=== PATIENT | female | born 1940 | race Caucasian/White ===

== ENCOUNTER → 2017-10-25 09:59 | Outpatient (CLI) | payer MEDICARE, OTHER, SELFPAY ==
--- NOTE | 2017-10-25 | DI.MG.S_ITS ---
BILATERAL DIGITAL SCREENING MAMMOGRAM 3D/2D WITH CAD: 10/25/2017 CLINICAL: Routine screening. Comparison is made to exams dated: 06/03/2016 mammogram, 02/17/2015 mammogram, and 11/19/2013 mammogram - [facility]. The tissue of both breasts is predominantly fatty. Current study was also evaluated with a Computer Aided Detection (CAD) system. No significant masses, calcifications, or other findings are seen in either breast. There has been no significant interval change. IMPRESSION: NEGATIVE There is no mammographic evidence of malignancy. A 1 year screening mammogram is recommended. This exam was interpreted at Station ID: [id number]. NOTE: For mammograms, a report in lay terms will be sent to the patient. Approximately 15% of breast malignancies will not be visualized mammographically. In the management of a palpable breast mass, a negative mammogram must not discourage biopsy of a clinically suspicious lesion. Electronically Signed By: Laith hughes/kenyatta:10/25/2017 11:16:10 letter sent: Normal Exam ACR BI-RADS Category 1: Negative [id number]
== END ==
PROVIDERS: Family Provider Internal Medicine; PCP Internal Medicine; Visit Provider Internal Medicine
DX: Z12.31 Encounter for screening mammogram for malignant neoplasm of breast (principal)
CPT/HCPCS: 77063; 77067

== ENCOUNTER → 2017-12-04 08:47 | Outpatient (CLI) | payer MEDICARE, OTHER, SELFPAY ==
[2017-12-04 10:04] LABS: BUN Creatinine Ratio 26.3 (6-22); Blood Urea Nitrogen 21 mg/dL (7-17); Calcium 10.9 mg/dL (8.4-10.2); Carbon Dioxide 30 mmol/L (22-32); Chloride 100 mmol/L (98-107); Cholesterol 229 mg/dL (140-199); Estimated Glomerular Filt Rate > 60.0 mL/min (>60); Glucose 85 mg/dL (80-110); HDL Cholesterol 105 mg/dL (40-60); HEMOLYSIS < 15 (0-50); LDL Cholesterol Calculated 112 mg/dL (<100); Potassium 4.4 mmol/L (3.4-5.1); Sodium 140 mmol/L (137-145); Triglycerides 62 mg/dL (35-150)
== END ==
PROVIDERS: PCP Internal Medicine; Visit Provider Internal Medicine
DX: I10 Essential (primary) hypertension (principal)
CPT/HCPCS: 36415; 80048; 80061

== ENCOUNTER → 2018-02-21 09:41 | Outpatient (CLI) | payer MEDICARE, OTHER, SELFPAY ==
--- NOTE | 2018-02-21 | DI.CT.S_ITS ---
PROCEDURE: CT UE LT WO CON INDICATIONS: ARTHRITIS OF LEFT GLENOHUMERAL JOINT pain TECHNIQUE: Noncontrast 1-1.5 mm thick sections acquired from the acromioclavicular joint to the inferior scapula, with coronal and sagittal reformatting. COMPARISON: [facility] [place], CR, XR SHOULDER 2+ VIEWS BILATERAL, 08/15/2017, 11:23. FINDINGS: Image quality: Diagnostic. Bones: There is no acute fracture, dislocation, or suspicious osseous lesion of the osseous structures of the left shoulder. There is deformity of the proximal left clavicle and proximal right clavicle, which fuses with the distal aspect of the 1st rib and the adjacent sternum. There are severe degenerative changes of the glenohumeral joint with prominent joint space narrowing, subchondral sclerosis, and subchondral cystic change. Prominent developing inferior marginal osteophytes are present. There are moderate degenerative changes of the acromioclavicular joint. Soft tissues: The soft tissues of the left shoulder. Be within normal limits. No loculated fluid collections or soft tissue masses are identified. There is no lymphadenopathy. No significant atrophy is appreciated involving the rotator cuff muscles. Please note that the tenderness, cartilaginous, and ligamentous structures of the shoulder are not adequately evaluated on CT. There appears to be a small glenohumeral joint effusion. Included portions of the left lung and mediastinum demonstrate areas of atelectasis. The heart may be enlarged. IMPRESSION: 1. Severe degenerative changes of the glenohumeral joint. 2. Moderate degenerative changes of the chronic clavicular joint. 3. Bony fusion of the anterior left 1st rib, proximal left clavicle, and adjacent sternum. This may be congenital. 4. Small glenohumeral joint effusion. Dictated by: Aki Castellano M.D. on 02/21/2018 at 10:26 Approved by: Aki Castellano M.D. on 02/21/2018 at 10:33
== END ==
PROVIDERS: PCP Internal Medicine; Visit Provider Orthopaedic Surgery
DX: M19.012 Primary osteoarthritis, left shoulder (principal); M25.412 Effusion, left shoulder
CPT/HCPCS: 73200

== ENCOUNTER → 2018-02-26 10:53 | Outpatient (CLI) | payer MEDICARE, OTHER, SELFPAY ==
[2018-02-26 12:17] LABS: Add Manual Diff / Slide Review NO; Basophils Percent Auto 1.4 % (0-2); Eosinophils Percent Auto 9.9 % (2-4); Hematocrit 37.2 % (36-46); Hemoglobin 12.3 g/dL (12.0-16.0); Mean Corpuscular HGB Conc 33.1 % (30-36); Mean Corpuscular Hemoglobin 27.4 PG (26-34); Mean Corpuscular Volume 82.9 fL (80-100); Monocytes Percent Auto 7.5 % (3-14); Neutrophils Absolute Auto 5400 /uL (3000-5900); Neutrophils Percent Auto 60.2 % (50-75); Platelet Count 504 X10^3/uL (150-400); Red Blood Cell Count 4.49 X10^6/uL (4.0-5.2); Red Cell Distribution Width 14.4 % (11.6-14.8); White Blood Cell Count 8.9 X10^3/uL (4.5-11.0)
[2018-02-26 12:26] LABS: INR 1.1 (0.9-1.3); Prothrombin Time 11.7 SECONDS (10.1-12.7)
[2018-02-26 12:29] LABS: PTT Partial Thromboplastin Tim 33 SECONDS (26.4-36.2)
[2018-02-26 12:45] LABS: BUN Creatinine Ratio 22.5 (6-22); Blood Urea Nitrogen 18 mg/dL (7-17); Calcium 11.2 mg/dL (8.4-10.2); Carbon Dioxide 30 mmol/L (22-32); Chloride 101 mmol/L (98-107); Estimated Glomerular Filt Rate > 60.0 mL/min (>60); Glucose 89 mg/dL (80-110); HEMOLYSIS < 15 (0-50); Potassium 4.8 mmol/L (3.4-5.1); Sodium 142 mmol/L (137-145)
== END ==
PROVIDERS: PCP Internal Medicine; Visit Provider Internal Medicine
DX: Z01.818 Encounter for other preprocedural examination (principal); I10 Essential (primary) hypertension
CPT/HCPCS: 36415; 80048; 85025; 85610; 85730

== ENCOUNTER 2018-03-22 09:54 | Inpatient (IN) | payer MEDICARE, OTHER, SELFPAY ==
[2018-03-13 13:55] VITALS: BMI 31.5
[2018-03-22] VITALS (16 sets, daily range): BP systolic 99–154; BP diastolic 56–81; PULSE 71–104; RESP 10–18; TEMP 36.3–36.8; O2SAT 94–100; BMI 30.2
[2018-03-22] MEDS: LACTATED RINGERS 1,000 ML 42 ML IV (11:32)
[2018-03-22] MEDS: VANCOMYCIN 1,000 MG/200 ML FROZ.PIGGY 200 MG IV ×2 (11:33→22:31)
--- NOTE | 2018-03-22 11:42 | PM.PREOP ---
Pre-operative Note Interval Note Pre-op Check: Yes History & Physical Reviewed by Physician Changes: No
--- NOTE | 2018-03-22 11:45 | DI.RAD.S_ITS ---
PROCEDURE: XR SHOULDER LT 1V INDICATIONS: POST OPERATIVE LEFT SHOULDER TECHNIQUE: 1 views of the shoulder were acquired. COMPARISON: [facility] [place], LAURA, XR SHOULDER 2+ VIEWS BILATERAL, 08/15/2017, 11:23. FINDINGS: There is a left shoulder arthroplasty with the prosthesis in anatomic alignment. Overlying post surgical changes are noted. IMPRESSION: Expected postsurgical change. Dictated by: Martha Espinosa M.D. on 03/22/2018 at 18:11 Approved by: Martha Espinosa M.D. on 03/22/2018 at 18:12
--- NOTE | 2018-03-22 12:07 | SUR.PREOP ---
Interscalene block by DR Anne who gave meds preop. patient tolerated well. Unable to take photo due to ultrasound printer not working. Time of block [id number].
[2018-03-22] MEDS: GENTAMICIN 200 MG in SODIUM CHLORIDE 0.9% 100 ML 105 ML IV (12:20)
[2018-03-22] MEDS: LIDOCAINE 1% W/EPI INJ 20 ML INJ (12:45)
--- NOTE | 2018-03-22 13:01 | SUR.OPER ---
Beach chair with Jose Marian/Bertrand shoulder positioner. Lower body on padded OR bed. Head in foam padded head cradle, secured with straps. Non-operative arm secured <90 degrees abduction. Pillow under knees. Safety belt at thigh. Cloth tape over blanket over lower legs. Gel pad under heels.
--- NOTE | 2018-03-22 14:11 | P.OP_ITS ---
Operative Date/Time/Diagnoses Date of procedure: 03/22/18 Time of procedure: 14:08 Pre-op diagnosis: LEFT SHOULDER END-STAGE ARTHRITIS Post-op diagnosis: same Procedure & Clinicians Procedure: LEFT TOTAL SHOULDER ARTHROPLASTY Same procedure as scheduled: Yes Indications: END-STAGE ARTHRITIS TO THE LEFT GLENOHUMERAL JOINT Surgeon: Michael Jernigan Director Of Special Events: Susan Nagy Anesthesia Type: General and Peripheral nerve block Operative Notes Findings: END-STAGE ARTHRITIC CHANGES TO THE GLENOHUMERAL JOINT WITH A SIGNIFICANT LOSS OF CARTILAGE TO BOTH THE HUMERAL HEAD AND GLENOID. SOME MILD FLATTENING OF THE HUMERAL HEAD. ANTERIOR, INFERIOR WELL POSTERIOR OSTEOPHYTE FORMATION. NO SIGNIFICANT LOOSE BODY FORMATIONS. NO SIGN OF ANY ROTATOR CUFF TEARS. Closure Type: primary Specimen(s): none sent Implants & Drains: TORNIER 3B STEM S35 GLENOID 48 HIGH OFFSET HEAD Applied: catheter, drain(s) and implant(s) Estimated Blood Loss (mL): 50 Blood products transfused: none Procedure in detail: ON DATE OF SERVICE, PATIENT WAS MET IN THE HOLDING AREA. THE OPERATIVE SITE WAS SIGNED AND WITNESSED BY THE OR STAFF. THE SURGERIES ONCE AGAIN DISCUSSED WITH THE PATIENT AND ANY REMAINING QUESTIONS THEY HAD WERE ANSWERED FULLY. PATIENT WAS TAKEN BACK TO THE OPERATING THEATER AND PLACED ON THE OPERATING TABLE IN A SUPINE POSITION. GREAT CARE WAS TAKEN TO ENSURE THAT ALL BONY PROMINENCES WERE PROPERLY PADDED. PATIENT WAS THEN PLACED INTO THE BEACH CHAIR POSITION. THE HEAD AND NECK WERE PROPERLY POSITIONED AND SECURED. A TIMEOUT WAS PERFORMED VERIFYING PATIENT'S NAME, PROCEDURE, AND THE OPERATIVE SITE. THE UPPER EXTREMITY WAS THEN PREPPED AND DRAPED IN THE NORMAL STERILE FASHION. PREVIOUSLY, THE BONY ANATOMY AND INCISION WERE MARKED OUT WELL INJECTED WITH MARCAINE WITH EPINEPHRINE. A DELTOPECTORAL APPROACH WAS PERFORMED. 10 BLADE WAS USED TO INCISE THE SKIN AND FASCIAL TISSUE. A DEEP KNIFE WAS USED TO CONTINUE SHARP DISSECTION UNTIL THE CEPHALIC VEIN WAS VISUALIZED. THE CEPHALIC VEIN WAS DISSECTED FREE ALLOWING US TO EXPOSE THE DELTOPECTORAL INTERVAL. THIS INTERVAL WAS THEN DEVELOPED. A SELLERS ELEVATOR WAS USED TO FREE UP THE DELTOID OF ANY SCARRING BOTH SUPERFICIALLY WELL DEEPLY. THE VEIN AND THE DELTOID WERE TAKEN LATERALLY WHILE THE PECTORALIS WAS TAKEN MEDIALLY. THIS GAVE US GOOD VISUALIZATION OF THE STRAP MUSCLES. THE CLAVIPECTORAL FASCIA WAS REMOVED AND THE STRAP MUSCLES WERE THEN RETRACTED MEDIALLY WITH THE PECTORALIS. THIS GAVE US STABILIZATION OF THE SUBSCAPULARIS. THE CIRCUMFLEX VESSELS WERE LIGATED AND THE SUBSCAPULARIS WAS SHARPLY EXCISED OFF THE LESSER TUBEROSITY AND THEN TAGGED. ONCE THE SUBSCAPULARIS WAS RELEASED WE'RE ABLE TO DISLOCATE THE SHOULDER. PATIENT HAD END-STAGE ARTHRITIC CHANGES TO THE HUMERAL HEAD WELL THE GLENOID WITH LARGE OSTEOPHYTES ANTERIOR INFERIORLY WELL POSTERIORLY. A RONGER WAS THEN USED TO REMOVE THE OSTEOPHYTES. NEXT, CUTTING GUIDE WAS PLACED AND A SAW WAS USED TO REMOVE THE HUMERAL HEAD. ONCE THE HEAD WAS REMOVED IT WAS TEMPLATED. A STARTING AWL WAS THEN USED TO FIND THE CANAL AND THEN THE HUMERUS WAS REAMED AND BROACHED. TRIAL STEM WAS PLACED AND A VARIETY OF HEADS WERE TRIALED. A PROTECTOR PLACED FOR THE OSTEOTOMY WAS THEN PLACED AND AND WE TURNED OUR ATTENTION BACK TO THE SUBSCAPULARIS WELL THE GLENOID. THE SUBSCAPULARIS WAS FREED UP AND A 360? FASHION. THE DEGENERATIVE ANTERIOR AND INFERIOR CAPSULAR TISSUE WAS REMOVED. THIS WAS FOLLOWED BY REMOVING THE DEGENERATIVE LABRAL TISSUE FROM AROUND THE GLENOID WELL THE BICEPS INSERTION. THIS GAVE US GOOD VISUALIZATION OF THE GLENOID. GLENOID TRIALS WERE USED UNTIL WE FOUND THE APPROPRIATE FIT AND CURVATURE. NEXT THE CENTER HOLE WAS DRILLED FOLLOWED BY REAMING OF THE GLENOID. THE WOUND WAS COPIOUSLY IRRIGATED AFTER REAMING. NEXT THE PEGS WERE DRILLED AND A TRIAL GLENOID WAS IMPACTED INTO PLACE. ONCE WE WERE SATISFIED WITH THE PREPARATION OF THE GLENOID , THE FINAL COMPONENT WAS CEMENTED INTO PLACE. THIS WAS FOLLOWED BY IMPACTION. WE RETURN TO OUR ATTENTION BACK TO THE HUMERUS. THE PROTECTOR PLATE WAS REMOVED AND HEADS WERE TRIALED ONCE AGAIN AND SO WE FOUND THE APPROPRIATE FIT. THE TRIALS WERE REMOVED AND BONE TUNNELS WERE MADE INTO THE HUMERAL NECK. #2 FIBERWIRE WERE PASSED THROUGH THE BONE TUNNELS FOR EVENTUAL SUBSCAPULARIS REPAIR. THE FINAL STEM AND HEAD WERE IMPACTED INTO PLACE AND THE SHOULDER WAS REDUCED. IT WAS TAKEN THROUGH RANGE OF MOTION AND WAS FELT TO BE STABLE IN BOTH POSTERIOR TRANSLATION WELL EXTERNAL AND INTERNAL ROTATION WITH ABDUCTION. THE SUBSCAPULARIS WAS REPAIRED BACK TO THE LESSER TUBEROSITY THROUGH THE BONE TUNNELS. THIS WAS THEN REINFORCED WITH SOFT TISSUE REPAIR. PART OF THE ROTATOR INTERVAL WAS THEN CLOSED. A DRAIN WAS PLACED AND THE REST OF THE WOUND WAS CLOSED IN A LAYERED FASHION. THE SHOULDER WAS THEN CLEANED DRIED AND DRESSED AND THE PATIENT WAS TAKEN TO THE PACU IN STABLE CONDITION. PATIENT WILL FOLLOW OUR POSTOPERATIVE PROTOCOL FOR TOTAL SHOULDER ARTHROPLASTY. Complications: none Condition: stable Disposition: Acute Care Plan for aftercare: PATIENT WILL FOLLOW OUR POSTOPERATIVE PROTOCOL FOR TOTAL SHOULDER ARTHROPLASTY. SLING FOR 6 WEEKS. NO LIMITS IN PASSIVE FORWARD FLEXION. ABDUCTION IS 0? IN THE SCAPULAR PLANE. EXTERNAL ROTATION TO 15?.
--- NOTE | 2018-03-22 16:15 | PC.NURSE ---
Pt arrived to RM 215 @ 1540from PACU. Awake/Alert x 3 Pt and family oriented to room and call system. Left shoulder dsg CDI. Hemavac intact/patent. IV LR infusing into Right wrist @ 125cc/hr via pump w/o incidence. Real cath patent clear, yellow urine. Call light w/in reach.
--- NOTE | 2018-03-22 16:50 | PT.IIE ---
Current Diagnoses Primary osteoarthritis, left shoulder (03/22/18) Surgery Performed Operation Date: 03/22/18 11:45 Actual Procedures p Total Shoulder Arthroplasty(Left) - Michael Jernigan MD Surgical History (Last Updated 03/13/18 @ 14:17 by Romi Luu, RN) H/O bilateral cataract extraction (Acute) History of colonoscopy (Acute) History of rectal surgery (Acute) Status post blepharoplasty of both eyes (Acute) Status post meniscectomy (Acute ~2010) Medical History (Last Updated 03/13/18 @ 15:23 by Romi Luu, RN) Allergic rhinitis (Acute) Asthma (Acute) Bruises easily (Acute) Compression fracture of fourth lumbar vertebra (Acute) Depression (Acute) GERD (gastroesophageal reflux disease) (Acute) Hand dermatitis (Acute) Hearing loss (Acute) History of bronchitis (Acute) History of colon polyps (Acute) Hyperlipidemia (Acute) Hypertension (Acute) Obesity (Acute) Osteoarthritis (Acute) Osteopenia (Acute) Pelvic fracture (Acute) Psoriasis (Acute) Sleep apnea (Acute) Trochanteric bursitis, right hip (Acute ~04/2016) Physical Therapy Inpatient Evaluation/Re-Eval M1 PT/OT-IP Prior Functional Status Start: 03/22/18 17:16 Freq: NEEDED Status: Active Protocol: Document 03/22/18 16:50 AB (Rec: 03/22/18 17:25 AB [id number]) Medical Review Prior Functional Status Medical History Reviewed Yes Communication able to make needs known Mobility and Gait pt stated that she is independent with all mobilities and ambulation wihtout AD Social History Household Members other Living Arrangements House Number of Floors (Floors) One Floor Number of Stairs To Enter/Railing? no steps to enter Home Environment Standard Height Toilet Tub/Shower Home Equipment Straight Cane Employment Status Retired Additional Social History Comment daughter will stay with pt to assist for ~ 10 days M2 PT-IP Current Condition Start: 03/22/18 17:16 Freq: NEEDED Status: Active Protocol: Document 03/22/18 16:50 AB (Rec: 03/22/18 17:25 AB [id number]) Physical Therapy Current Condition Current Condition Evaluation Date 03/22/18 Treatment Diagnosis s/p L TSA; difficulty in walking Onset Date 03/22/18 Precautions Shoulder Precautions Sling PROM Internal Rotation to Body No Abduction Pendulums Brace sling on L UE Other Precautions per ortho MD POC: no limits in passive forward flexion; abduction 0 deg in scapular plane, ER to 15 deg Weight Bearing Status Weight Bearing Status Non-Weight Bearing M3 PT-IP Subjective Start: 03/22/18 17:16 Freq: NEEDED Status: Active Protocol: Document 03/22/18 16:50 AB (Rec: 03/22/18 17:25 AB [id number]) Subjective Physical Therapy Visit Type Type Initial Evaluation Visit Start Time 16:50 Visit Stop Time 15:17 Total Visit Minutes 27 Number of CLAIMS SERVICE ADJUSTOR Visits 0 Physical Therapy Visit Comments Patient Comments pt agreeable to do PT Therapy Pain Assessment Pain Present Pain Present Denied Pain M4 PT-IP Mobility and Gait Start: 03/22/18 17:16 Freq: NEEDED Status: Active Protocol: Document 03/22/18 16:50 AB (Rec: 03/22/18 17:25 AB [id number]) PT-Bed Mobility Assessment Supine to Sit Supine to Sit Maximum Assistance Scooting Scooting to Edge of Bed Maximum Assistance PT-Transfer Assessment Sit to and From Stand Sit to and from Stand Contact Guard Assistance Equipment Transfer Assistive Device Gait Belt Transfers Transfer Destination Chair Transfer Technique Stand Step Pivot Transfer Ability Level of Assist Contact Guard Assistance Gait Assessment Gait Gait Assistance Required: Standby Assistance Contact Guard Assist Distance (Feet) 30 Able to Maintain Weight Bearing Status Yes During Gait Assistive Devices Assistive Device None Gait Belt Gait Deviations General Gait Pattern Decreased Stride Length Decreased Feet Clearance Factors Limiting Gait Function Factors Limiting Gait Function Decreased Activity Tolerance Decreased Sensation Decreased Strength Limited Range of Motion Poor Balance Poor Safety Awareness Comments Gait Comments pt with (+) LOB during ambulation x 2 requiring CGA to min A for rebalancing. PT-Balance Assessment Sitting Balance and Reactions Static Sitting Balance Ability Good Dynamic Sitting Balance Ability Good Standing Balance and Reactions Static Standing Balance Ability Fair Dynamic Standing Balance Ability Poor Device Used without AD M5 PT-IP Objective Assessments Start: 03/22/18 17:16 Freq: NEEDED Status: Active Protocol: Document 03/22/18 16:50 AB (Rec: 03/22/18 17:25 AB [id number]) Orientation Orientation/Cognition Level of Alertness Alert Orientation Name Age Birthday Month Date Year Day of Week Place Situation Safety Awareness Decreased Safety Awareness Gross Range of Motion Upper Extremity ROM Assessment Left Impaired Lower Extremity ROM Assessment Within Functional Limits Strength Lower Extremity Strength Assessment Bilaterally Impaired Hip 4-/5 Knee 4-/5 Sensation Assessment Sensation Gross Sensation Left UE Impaired Sensation Description Numbness M6 PT-IP Treatment Start: 03/22/18 17:16 Freq: NEEDED Status: Active Protocol: Document 03/22/18 16:50 AB (Rec: 03/22/18 17:25 AB [id number]) Physical Therapy Treatment Education Education Provided Precautions Safety Brace Education Donning [place] Patient Caregiver Other Treatments Other Treatment Performed educated pt and daughter on donning/doffing of sling M7 PT-IP Assessment and Plan Start: 03/22/18 17:16 Freq: NEEDED Status: Active Protocol: Document 03/22/18 16:50 AB (Rec: 03/22/18 17:25 AB [id number]) PT Summary Assessment and Plan Potential Rehabilitation Potential Good Status of Condition at Evaluation Stable Summary Impairments Pain ROM Strength Balance Coordination Sensation Cognition Bed Mobility Transfers Gait Activity Tolerance Assessment Summary pt requiring one person assist with mobility and daughter plans to assist pt at home. will need further assessment if pt requires a SPC for safety and further caregiver training. pt is set up for outpt PT. Goals Bed Mobility Goal Standby Assistance Transfer Goal Standby Assistance Cane Gait Goal Standby Assistance Cane Gait Distance 100 Other Goals ambulation using least restrictive device SBA Days to Meet Goals 3 Frequency of Treatment Frequency Of Treatment Twice a Day Treatment Plan Physical Therapy Treatment Plan Bed Mobility Training Transfer Training Gait Training Therapeutic Exercise Balance Retraining Post Op Education Discharge Planning Hot or Cold Pack Neuromuscular Re-ed Coordination Retraining Manual Therapy Other Recommendations and Next Treatment ambulation using SPC/without Focus AD, caregiver training Recommendations To Nursing Amount of Assist Needed 1 Person Assist Discharge Recommendations PT Discharge Recommendations Home with / Assist Outpatient PT
[2018-03-22] MEDS: LACTATED RINGERS 1,000 ML 125 ML IV ×2 (17:13→23:56)
--- NOTE | 2018-03-23 00:02 | PC.NURSE ---
Addendum entered by Cassie Rodrigez R.N. 03/23/18 06:02: States pain is slightly worse at 4/10 and more sharp; medicated with Oxycodone. Original Note: Addendum entered by Cassie Rodrigez R.N. 03/23/18 05:16: States shoulder just now starting to ache and rates severity as 3/10; discussed different pain meds ordered and decided to start with Meloxicam and if pain intensifies can always take a narcotic pain medication later. Also provided ice pack. Dressing remains CDI and CMS is intact. Has been awake most of shift. Original Note: Patient is alert and oriented. Breath sounds CTA with RA sat of 96%. HRR. Denies nausea. BT hypoactive; denies flatus. Aquacel dressing to left shoulder is CDI. Wearing sling. CMS is intact and able to move fingers without difficulty and has good radial pulse. Denies pain. Indwelling catheter is patent with clear yellow urine. Hemovac is intact and compressed. Wearing bilateral calf SCD's. Fall risk score is moderate; bed alarm is activated.
[2018-03-23 03:31] VITALS: BP 130/74; PULSE 64; RESP 17; TEMP 36.7; O2SAT 96
[2018-03-23] MEDS: MELOXICAM 7.5 MG TABLET PO (05:07)
[2018-03-23] MEDS: PANTOPRAZOLE 20 MG TABLET PO (05:53)
[2018-03-23] MEDS: OXYCODONE IR 5 MG TABLET PO ×3 (06:01→11:49)
[2018-03-23 06:09] LABS: Hematocrit 33.1 % (36-46); Hemoglobin 10.8 g/dL (12.0-16.0); Mean Corpuscular HGB Conc 32.6 % (30-36); Mean Corpuscular Hemoglobin 26.8 PG (26-34); Mean Corpuscular Volume 82.4 fL (80-100); Platelet Count 442 X10^3/uL (150-400); Red Blood Cell Count 4.02 X10^6/uL (4.0-5.2); Red Cell Distribution Width 14.1 % (11.6-14.8); White Blood Cell Count 12.3 X10^3/uL (4.5-11.0)
--- NOTE | 2018-03-23 08:06 | P.DS_ITS ---
History of Present Illness Date Patient Seen: 03/23/18 Time Patient Seen: 07:30 Chief complaint: [id number] LEFT RECONSTRUCT SHOULDER JOINT Narrative: Patient seen bedside s/p [facility]. Patient is doing well, pain is well controlled and she is resting comfortably. She denies SOB, CP, and numbness/tingling. Discharge Providers Date of admission: 03/22/18 09:54 Primary care physician: Ayla El MD Consults: 03/13/18 16:04 Consult to Respiratory Therapy Evaluate & Treat Comment: States she was suspected JOHANNE, STOPBANG negative Physician Instructions: Evaluate and treat 03/22/18 14:02 Consult to Discharge Planning Routine Comment: Consult to Physical Therapy Evaluate & Treat Comment: Physician Instructions: Evaluate and Treat Consult to Respiratory Therapy Evaluate & Treat Comment: Physician Instructions: Evaluate and treat Discharge provider: Olga Hernadez PA-C Discharge Date: 03/23/18 Summary Discharge Diagnosis: Left shoulder osteoarthritis Hospital Course: [facility] Patient tolerated the procedure well with no major complications. She was seen by PT who recommended that the patient be discharged home. Patient was stable and ready for discharge on 03/23/18. Status at Discharge Cognitive/behavioral status at discharge: Alert & oriented x3 Functional status at discharge: independent ambulation Overall status at discharge: patient is progressing back to baseline Time Spent with Patient Less than 30 minutes Exam Vital Signs (past 8 hours): - 03/23/18 03:31 Temperature 98.1 F Pulse Rate 64 Respiratory Rate 17 Blood Pressure 130/74 Pulse Oximetry 96 Oxygen Delivery Method Room Air Oxygen Flow Rate 1 Narrative Exam Narrative: WDWN NAD A&Ox3. Surgical dressing on l. shoulder is clean, dry, and intact, minimal erythema/edema. She has full ROM of the wrist and elbow. Sensation and pulses are intact. Objective Labs Result Diagrams: 03/23/18 05:40 Labs: Laboratory Results - last 24 hr 03/23/18 05:40 WBC 12.3 H RBC 4.02 Hgb 10.8 L Hct 33.1 L MCV 82.4 MCH 26.8 MCHC 32.6 RDW 14.1 Plt Count 442 H Discharge Plan Discharge Plan Patient Disposition: Home Discharge comment: Please call the office to give the patient her post-op appointment Discharge Med Rec/Prescriptions Prescriptions: New acetaminophen 325 mg Tablet 975 mg PO TID Qty: 0 RF: 0 docusate sodium 100 mg Capsule 100 mg PO BID Qty: 0 RF: 0 oxycodone 5 mg Tablet 5 mg PO Q4H PRN (Reason: Pain, Moderate (4-6)) Qty: 40 RF: 0 Continue MULTIVITAMIN (DAILY MULTI VITAMIN) 1 tab PO Q DAY Qty: 0 RF: 0 albuterol sulfate 2.5 MG/3 ML solution for nebulization 3 ml INH Q4HP Qty: 1 RF: 4 ASPIRIN (Aspirin EC) tablet 81 mg PO Q DAY Qty: 0 RF: 0 MAGNESIUM (#Flypad LEON ELEMENTAL MAGNESIUM) 250 mg PO QDAY Qty: 0 RF: 0 cholecalciferol (vitamin D3) [Vitamin D3] 2,000 unit Capsule 2,000 unit PO DAILY Qty: 0 RF: 0 [CALCIUM] 1,260 mg PO QDAY Qty: 0 RF: 0 PEG-400/Propylene Glycol (#SYSTANE 0.4%-0.3% 20 ML) 1 nilda OP BID Qty: 0 RF: 0 ascorbic acid (vitamin C) 500 MG tablet 500 mg PO QDAY Qty: 0 RF: 0 COENZYME Q10 (COQ10) 100 mg PO QDAY Qty: 0 RF: 0 fluticasone-salmeterol [Advair Diskus] 250-50 mcg/dose Blister With Device 1 inh INHALATION BID RF: 0 amlodipine 5 mg Tablet 5 mg PO DAILY RF: 0 meloxicam 7.5 mg Tablet 7.5 mg PO Q12H PRN (Reason: Pain) RF: 0 omeprazole 20 mg Capsule,Delayed Release(Dr/Ec) 20 mg PO DAILY RF: 0 albuterol sulfate 90 mcg/actuation Hfa Aerosol Inhaler 2 puff INHALATION Q4H PRN (Reason: Asthma) RF: 0 losartan 100 mg Tablet 100 mg PO DAILY RF: 0 calcium citrate-vitamin D3 [Citracal + D Maximum] 315-250 mg-unit Tablet 2 tab PO QAM RF: 0 loratadine [Claritin] 10 mg Tablet 10 mg PO DAILY PRN (Reason: Allergies) RF: 0 calcium citrate-vitamin D3 [Citracal + D Maximum] 315-250 mg-unit Tablet 2 tab PO BEDTIME RF: 0 omeprazole 20 mg PO DAILY RF: 0 Follow up/Referrals: Ayla El MD [Primary Care Provider] - (follow up is April 04 @130pm at the [facility] ) Provider Discharge Instructions Diet: Diet as Tolerated Activity: Nonweightbearing on surgical shoulder Cold/Heat Therapy: Apply ice twenty minutes at a time to affected area at least hourly while awake. Skin/Wound/Dressing Care Report to your healthcare provider any signs of infection, such as:: chills, fever, night sweats, increased pain and unusual drainage Dressing: Keep surgical dressing clean, dry, and intact Visit Report/Discharge Packet Instructions: DI for Shoulder Replacement Visit Report Forms: Stroke Signs & Symptoms Discharge Data Primary Care Provider: Ayla El Attending Provider: Michael Jernigan Admit Date/Time: 03/22/18 09:54 Quality VTE Deep Vein Thrombosis/Pulmonary Embolism Present on Admission: No
[2018-03-23 08:33] VITALS: BP 129/71; PULSE 76; RESP 17; TEMP 36.9; O2SAT 98
[2018-03-23] MEDS: ASCORBIC ACID 500 MG TABLET PO (08:36)
[2018-03-23] MEDS: MULTIVITAMIN 1 TABLET 1 TAB PO (08:37)
[2018-03-23] MEDS: SODIUM CHLORIDE 0.9% FLUSH 10 ML IV (08:51)
--- NOTE | 2018-03-23 09:30 | PT.IPTN ---
Current Diagnoses Primary osteoarthritis, left shoulder (03/22/18) Surgery Performed Operation Date: 03/22/18 11:45 Actual Procedures p Total Shoulder Arthroplasty(Left) - Michael Jernigan MD Physical Therapy Treatment Note M2 PT-IP Current Condition Start: 03/22/18 17:16 Freq: NEEDED Status: Active Protocol: Document 03/22/18 16:50 AB (Rec: 03/22/18 17:25 AB [id number]) Physical Therapy Current Condition Current Condition Evaluation Date 03/22/18 Treatment Diagnosis s/p L TSA; difficulty in walking Onset Date 03/22/18 Precautions Shoulder Precautions Sling PROM Internal Rotation to Body No Abduction Pendulums Brace sling on L UE Other Precautions per ortho MD POC: no limits in passive forward flexion; abduction 0 deg in scapular plane, ER to 15 deg Weight Bearing Status Weight Bearing Status Non-Weight Bearing M3 PT-IP Subjective Start: 03/22/18 17:16 Freq: NEEDED Status: Active Protocol: Document 03/23/18 09:30 GGD (Rec: 03/23/18 11:25 GGD [id number]) Subjective Physical Therapy Visit Type Type Treatment Note Visit Start Time 09:10 Visit Stop Time 09:30 Total Visit Minutes 20 Number of RESIN PAINTER Visits 1 Physical Therapy Visit Comments Patient Comments Pt states she feeling better. Therapy Pain Assessment Pain Present Pain Present Pain Reported Location Left Shoulder Intensity 5 Scale Used Numeric (1 - 10) M4 PT-IP Mobility and Gait Start: 03/22/18 17:16 Freq: NEEDED Status: Active Protocol: Document 03/23/18 09:30 GGD (Rec: 03/23/18 11:25 GGD [id number]) PT-Bed Mobility Assessment Supine to Sit Supine to Sit Contact Guard Assistance Scooting Scooting to Edge of Bed Standby Assistance PT-Transfer Assessment Sit to and From Stand Sit to and from Stand Contact Guard Assistance Equipment Transfer Assistive Device None Gait Belt Orthotic/Prosthetic Devices or Brace: Yes Transfers Transfer Destination Chair Transfer Ability Level of Assist Contact Guard Assistance Gait Assessment Gait Gait Assistance Required: Standby Assistance Contact Guard Assist Distance (Feet) 50 Able to Maintain Weight Bearing Status Yes During Gait Assistive Devices Assistive Device Gait Belt Straight Cane Orthotic/Prosthetic Devices or Brace: Yes Gait Deviations General Gait Pattern Decreased Stride Length Decreased Feet Clearance Factors Limiting Gait Function Factors Limiting Gait Function Decreased Activity Tolerance Decreased Sensation Decreased Strength Limited Range of Motion Poor Balance Poor Safety Awareness M5 PT-IP Objective Assessments Start: 03/22/18 17:16 Freq: NEEDED Status: Active Protocol: Document 03/22/18 16:50 AB (Rec: 03/22/18 17:25 AB [id number]) Orientation Orientation/Cognition Level of Alertness Alert Orientation Name Age Birthday Month Date Year Day of Week Place Situation Safety Awareness Decreased Safety Awareness Gross Range of Motion Upper Extremity ROM Assessment Left Impaired Lower Extremity ROM Assessment Within Functional Limits Strength Lower Extremity Strength Assessment Bilaterally Impaired Hip 4-/5 Knee 4-/5 Sensation Assessment Sensation Gross Sensation Left UE Impaired Sensation Description Numbness M6 PT-IP Treatment Start: 03/22/18 17:16 Freq: NEEDED Status: Active Protocol: Document 03/23/18 09:30 GGD (Rec: 03/23/18 11:25 GGD [id number]) Physical Therapy Treatment Exercises Exercises Shoulder Pendulums Elbow Flexion/Extension Wrist ROM Hand ROM Education Education Provided Precautions Safety Brace Education [place] Patient M7 PT-IP Assessment and Plan Start: 03/22/18 17:16 Freq: NEEDED Status: Active Protocol: Document 03/23/18 09:30 GGD (Rec: 03/23/18 11:25 GGD [id number]) PT Summary Assessment and Plan Summary Assessment Summary Pt improved stablity with gait with SPC. She had no LOB with gait. She improved with bed mobility and needed less assistance. Pt will need assistance at home. Frequency of Treatment Frequency Of Treatment Twice a Day Treatment Plan Physical Therapy Treatment Plan Bed Mobility Training Transfer Training Gait Training Therapeutic Exercise Balance Retraining Post Op Education Discharge Planning Hot or Cold Pack Neuromuscular Re-ed Coordination Retraining Manual Therapy Recommendations To Nursing Amount of Assist Needed 1 Person Assist Discharge Recommendations PT Discharge Recommendations Home with 05/12 Assist Outpatient PT
[2018-03-23 10:55] VITALS: BP 139/79; PULSE 56; RESP 17; TEMP 36.6; O2SAT 98
--- NOTE | 2018-03-23 11:08 | PC.NURSE ---
Farhan d/c at 1007; @ 1100 patient voided; c/m/s to LUE positive; Jaxson bernal c/d/i; Hemovac d/c at 1020; patient reports pain <3
[2018-03-23 11:25] VITALS: BP 120/67; PULSE 58; RESP 16; TEMP 36.8; O2SAT 98
--- NOTE | 2018-03-23 11:56 | CM.DANOTE ---
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 Yes Advance Directives on File No History Provided By Patient Medical Record Has Patient been admitted in last 30 No days? Prior Living Arrangements House Household Members spouse other Type of transporation used prior to Drives own vehicle admit Independent with ADL's Yes Is patient alert and oriented? Yes Caregiver for Another No Discharge Plan Home Community Services Physical Therapy Referrals Initiated None needed Whiteboard Updated in Patient Room with Yes name and ext. # of Assembler Musical Equipment Please Provide Date Initial DC 03/23/18 Assessment Was Performed Pre-Anesthesia Assessment Start: 03/13/18 13:55 Freq: Status: Complete Protocol: Document 03/13/18 13:55 VLJ (Rec: 03/13/18 14:23 VLJ [id number]) Pre-Anesthesia Assessment Patient Also Known As Serrato (AKA) Patient Information Reviewed Via Chart Review Phone Assessment Assessment Completed With Patient Lab Results BMP/CMP CBC EKG PT/INR Comment Elevated platelet count Primary Care Provider [facility] Clearance Received Yes Seen Specialist in Last 12 Months Yes Specialist Seen [facility] Orthopedist Primary Language Yi Air Defense Control Officer Required No Height 154.94 cm Weight 75.75 kg Body Mass Index (BMI) 31.5 Hearing Ability Hard of Hearing Use of Hearing Aid Visual Impairment Partially Limited Visual Assist Glasses Dentition Type Teeth, Natural Present Teeth, Missing Barriers to Learning Visual Comment Reading glasses Hx Anesthesia Reactions No Hx Family Anesthesia Reaction No Hx Malignant Hyperthermia No Hx Blood Transfusions No Anesthesia Review Requested No 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 Sciences Professor No alcohol intake current alcohol intake frequency holidays/special occasions only Alcohol Intake Frequency Other: 1/year Smoking Status Former smoker Substance Use Type does not use Comment Few cigarettes/month as a teen /college age Pain Present Pain Reported Comment Left shoulder Musculoskeletal Symptoms Back Pain Joint Pain Limited Range of Motion History of Falling (Recent or History of Yes ) Patient is completely paralyzed or No completely immobile Ambulatory Aid None/bed rest/nurse assist Gait/Transferring Normal/bedrest/immobile Mental Status Oriented to own ability Is patient on oxygen? No Does patient have FONG/SOB Yes: Occasional Hx Sleep Apnea No Suspected Sleep Apnea Yes: STOPBANG negative Comment Phlegm, seeing ENT Dr. Castillo Currently Taking a Beta Sofiya No Can You Climb a Flight of Stairs Without Yes SOB Hx Chest Pain No Hx SOB Yes: Occasional Hx Syncope or Dizziness No Anti-Coagulant Therapy No Has a Range Mechanic No Cardiac Testing No Hx Pacemaker/ICD No Pacemaker Rep Required? No Cardiac Clearance Received Not Applicable Diet Type At Home Regular dysphagia No Comment Non-inflammatory Bladder Pattern Frequency Incontinent, Stress Urgency Urinary Catheter Present No Hx Urinary Self Catheterization No Diabetes No Patient No Lactating No Hx Drug Resistant Organism No Presence of External or Internal Medical No Devices Have you traveled outside the [facility] States in the last 30 days? Marital Status Lives With other Prior Living Arrangements House Number of Floors (Floors) One Floor Number of Stairs To Enter/Railing? No steps into house; cement settled 3 Support System Child/Children Does the Patient Have Assistance After Yes Surgery Patient Discharge Plan Description Return Home Comment Plans overnight stay Feels Safe in Current Environment Yes Been Physically Hurt or Threatened By a No Person in Current Environment Do you have thoughts of harming yourself None or others? Are you currently considering suicide? No Do you have a plan to hurt yourself or No Plan others? Do You Have Any Spiritual Beliefs That No May Affect Your HC Choices? Do You Have Any Cultural Practices That No May Affect Your HC Choices? Spiritual Referral None Who Can We Speak to About Patient's Care Family & Friends Identifying Code for Release of Patient Declined Information Health Care Proxy/Next of Kin Daughter - Natividad Panda Health Care Proxy Emergency Contact Name Same Emergency Contact Phone Number Same Advance Directives? Yes Advance Directives on File No Requested Patient Bring Advanced Yes Directives DOS Power of Bank Sales And Service Manager Yes: Daughter Natividad Panda for [facility] Power of Bank Sales And Service Manager Name Same Comment Yahir Society PAC Instructions Assistance for 24 hours post- op Do not shave/clip surgical site Durable medical equipment Medications to take/avoid Nasal antibiotic No ETOH/petroleum product on skin DOS NPO Ortho class Post-op transportation Pre-op antibiotic Pre-surgical wash Sensory aids Sturdy shoes/comfortable clothes Do not bring valuables and remove jewelry Comment Check-in 101 PAC Comment Patient concerned regarding elevated platelets; advised to discuss with both the PCP and surgeon. Stop Bang Assessment Do you snore loudly (louder than talking No or loud enough to be heard through closed doors) Do you often feel tired, fatigued or Yes sleepy during the daytime Has anyone ever observed you stop No breathing while sleeping? Do you have, or are you being treated Yes for, high blood pressure Is your BMI more than 35 kg/m2 No Age over 50 Yes Estimated neck circumference greater No than 40cm or 16in Gender male No Result Negative
== END 2018-03-23 11:00 | disposition home or self-care (01) | DRG 483 ==
PROVIDERS: Admitting Provider Orthopaedic Surgery; PCP Internal Medicine; Visit Provider Orthopaedic Surgery
PROC: 0RRK0JZ Replacement of Left Shoulder Joint with Synthetic Substitute, Open Approach (ICD-10-PCS; CPT 23472; principal; 2018-03-22 11:45)
DX: M19.012 Primary osteoarthritis, left shoulder (principal); M81.0 Age-related osteoporosis without current pathological fracture; K21.9 Gastro-esophageal reflux disease without esophagitis; J45.909 Unspecified asthma, uncomplicated; G47.33 Obstructive sleep apnea (adult) (pediatric)
CPT/HCPCS: 36415; 64450; 73020; 85027; 97161; 97530; C1776; J1100; J2250; J2405; J2704; J3010; J3370

== ENCOUNTER → 2018-11-26 13:27 | Outpatient (CLI) | payer MEDICARE, OTHER, SELFPAY ==
[2018-03-22 16:04] VITALS: BMI 30.2
--- NOTE | 2018-11-26 | DI.MG.S_ITS ---
BILATERAL DIGITAL SCREENING MAMMOGRAM 3D/2D WITH CAD: 11/26/2018 CLINICAL: Routine screening. Comparison is made to exams dated: 10/25/2017 mammogram, 06/03/2016 mammogram, and 02/17/2015 mammogram - [facility]. The tissue of both breasts is predominantly fatty. Current study was also evaluated with a Computer Aided Detection (CAD) system. No significant masses, calcifications, or other findings are seen in either breast. There has been no significant interval change. IMPRESSION: NEGATIVE There is no mammographic evidence of malignancy. A 1 year screening mammogram is recommended. This exam was interpreted at Station ID: [id number]. NOTE: For mammograms, a report in lay terms will be sent to the patient. Approximately 15% of breast malignancies will not be visualized mammographically. In the management of a palpable breast mass, a negative mammogram must not discourage biopsy of a clinically suspicious lesion. Electronically Signed By: Dieog cotton/kenyatta:11/26/2018 17:46:10 letter sent: Normal Exam ACR BI-RADS Category 1: Negative 3341F
== END ==
PROVIDERS: PCP Internal Medicine; Visit Provider Internal Medicine
DX: Z12.31 Encounter for screening mammogram for malignant neoplasm of breast (principal)
CPT/HCPCS: 77063; 77067

== ENCOUNTER → 2018-12-21 09:20 | Outpatient (CLI) | payer MEDICARE, OTHER, SELFPAY ==
[2018-03-22 16:04] VITALS: BMI 30.2
[2018-12-21 09:48] LABS: BUN Creatinine Ratio 35.7 (6-22); Blood Urea Nitrogen 25 mg/dL (7-17); Calcium 10.8 mg/dL (8.4-10.2); Carbon Dioxide 26 mmol/L (22-32); Chloride 105 mmol/L (98-107); Cholesterol 233 mg/dL (140-199); Estimated Glomerular Filt Rate > 60.0 mL/min (>60); Glucose 96 mg/dL (80-110); HDL Cholesterol 79 mg/dL (40-60); HEMOLYSIS < 15 (0-50); LDL Cholesterol Calculated 140 mg/dL (<100); Potassium 4.4 mmol/L (3.4-5.1); Sodium 139 mmol/L (137-145); Triglycerides 68 mg/dL (35-150)
[2018-12-21 10:17] LABS: Vitamin D 25 Hydroxy (D3) 41.4 ng/mL (30.0-100.0)
[2018-12-25 15:58] LABS: Parathyroid Hormone Int 27 pg/mL (14-64)
== END ==
PROVIDERS: PCP Internal Medicine; Visit Provider Internal Medicine
DX: I10 Essential (primary) hypertension (principal); E78.5 Hyperlipidemia, unspecified; E83.52 Hypercalcemia
CPT/HCPCS: 36415; 80048; 80061; 82306; 83970

== ENCOUNTER → 2019-06-10 14:25 | Outpatient (CLI) | payer MEDICARE, OTHER, SELFPAY ==
[2018-03-22 16:04] VITALS: BMI 30.2
== END ==
PROVIDERS: PCP Internal Medicine; Visit Provider Internal Medicine
DX: M81.0 Age-related osteoporosis without current pathological fracture (principal); Z78.0 Asymptomatic menopausal state; Z82.62 Family history of osteoporosis
CPT/HCPCS: 77080

== ENCOUNTER → 2019-11-08 09:29 | Outpatient (CLI) | payer MEDICARE, OTHER, SELFPAY ==
[2018-03-22 16:04] VITALS: BMI 30.2
[2019-11-08 10:52] LABS: Alanine Aminotransferase 20 IU/L (<35); Albumin 4.2 g/dL (3.5-5.0); Albumin Globulin Ratio 1.2 (1.0-2.8); Alkaline Phosphatase 178 U/L (38-126); Aspartate Aminotransferase 29 IU/L (14-36); BUN Creatinine Ratio 30.7 (6-22); Bilirubin Total 0.4 mg/dL (0.2-1.3); Blood Urea Nitrogen 23 mg/dL (7-17); Calcium 10.6 mg/dL (8.4-10.2); Carbon Dioxide 29 mmol/L (22-32); Chloride 102 mmol/L (98-107); Estimated Glomerular Filt Rate > 60.0 mL/min (>60); Globulin 3.6 g/dL (1.7-4.1); Glucose 91 mg/dL (80-110); HEMOLYSIS < 15 (0-50); Potassium 4.3 mmol/L (3.4-5.1); Sodium 138 mmol/L (137-145); Total Protein 7.8 g/dL (6.3-8.2)
== END ==
PROVIDERS: PCP Internal Medicine; Referring Provider Internal Medicine; Visit Provider Internal Medicine
DX: M81.8 Other osteoporosis without current pathological fracture (principal); E83.52 Hypercalcemia
CPT/HCPCS: 36415; 80053; 82306

== ENCOUNTER → 2019-12-30 10:55 | Outpatient (CLI) | payer MEDICARE, OTHER, SELFPAY ==
[2018-03-22 16:04] VITALS: BMI 30.2
--- NOTE | 2019-12-30 10:57 | DI.MG.S_ITS ---
BILATERAL DIGITAL SCREENING MAMMOGRAM 3D/2D WITH CAD: 12/30/2019 CLINICAL: Routine screening. Comparison is made to exams dated: 11/26/2018 mammogram, 10/25/2017 mammogram, and 06/03/2016 mammogram - [facility]. The tissue of both breasts is predominantly fatty. Current study was also evaluated with a Computer Aided Detection (CAD) system. There are benign vascular calcifications in both breasts. No significant masses, calcifications, or other findings are seen in either breast. There has been no significant interval change. IMPRESSION: BENIGN There is no mammographic evidence of malignancy. A 1 year screening mammogram is recommended. This exam was interpreted at Station ID: [id number]. NOTE: For mammograms, a report in lay terms will be sent to the patient. Approximately 15% of breast malignancies will not be visualized mammographically. In the management of a palpable breast mass, a negative mammogram must not discourage biopsy of a clinically suspicious lesion. Electronically Signed By: Marii em/kenyatta:12/30/2019 12:30:07 letter sent: Normal Exam ACR BI-RADS Category 2: Benign Finding(s) 3342F
== END ==
PROVIDERS: PCP Internal Medicine; Referring Provider Internal Medicine; Visit Provider Internal Medicine
DX: Z12.31 Encounter for screening mammogram for malignant neoplasm of breast (principal)
CPT/HCPCS: 77063; 77067

== ENCOUNTER → 2020-01-21 12:08 | Outpatient (CLI) | payer MEDICARE, OTHER, SELFPAY ==
[2018-03-22 16:04] VITALS: BMI 30.2
--- NOTE | 2020-01-21 | DI.RAD.S_ITS ---
PROCEDURE: XR RIBS BI 3V INDICATIONS: PAIN AGGRAVATED BY COUGHING AND DEEP BREATHING TECHNIQUE: 5 views of the left and right ribs were acquired. COMPARISON: None. FINDINGS: Surgical changes and devices: Left shoulder arthroplasty in expected postoperative alignment. Bones and chest wall: No fractures or dislocations. No suspicious bony lesions. Overlying soft tissues appear unremarkable. Lungs and pleura: The visualized lung appears clear. No pleural effusions or pneumothorax are visible. IMPRESSION: No definite rib fracture radiographically identified. Dictated by: Shahid Enciso M.D. on 01/21/2020 at 16:49 Approved by: Shahid Enciso M.D. on 01/21/2020 at 16:52
--- NOTE | 2020-01-21 | DI.RAD.S_ITS ---
PROCEDURE: XR THORACIC SPINE 3V INDICATIONS: ACUTE BILATERAL THORACIC BACK PAIN TECHNIQUE: 3 views of the thoracic spine were acquired. COMPARISON: [facility], , CHEST 2 VIEW, 07/03/2014, 10:47. FINDINGS: Bones: Multiple thoracolumbar vertebral body compression fractures, probably at the T12 and L1 level. There is diffuse spondylosis throughout the cervical, thoracic and lumbar spine. Soft tissues: No paravertebral stripe thickening. IMPRESSION: Age-indeterminate thoracolumbar compression fractures involving T12 and L1. Diffuse spondylosis Dictated by: Shahid Enciso M.D. on 01/21/2020 at 17:10 Approved by: Shahid Enciso M.D. on 01/21/2020 at 17:13
--- NOTE | 2020-01-21 | DI.RAD.S_ITS ---
PROCEDURE: XR LUMBAR SPINE 2-3V INDICATIONS: LUMBAR BACK PAIN TECHNIQUE: 2 views of the lumbar spine were acquired. COMPARISON: [facility], [place], XR THORACIC SPINE 3V, 01/21/2020, 12:22. [facility], [place], L-SPINE 2-3 VIEWS, 03/18/2009, 14:45. FINDINGS: Bones: T12 and L1 moderate compression fractures. Severe diffuse spondylitic changes. Facet arthropathy. Levocurvature is noted. Straightening of the normal lordotic curvature. Soft tissues: Overlying bowel gas pattern is normal. No suspicious soft tissue calcifications. IMPRESSION: Moderate T12 and L1 compression fractures which are technically age indeterminate in the absence of more recent relevant comparison studies. Recommend clinical correlation. Severe diffuse spondylosis and facet arthropathy. Dictated by: Shahid Enciso M.D. on 01/21/2020 at 17:13 Approved by: Shahid Enciso M.D. on 01/21/2020 at 17:14
== END ==
PROVIDERS: PCP Internal Medicine; Referring Provider Physician Assistant; Visit Provider Physician Assistant
DX: M54.6 Pain in thoracic spine (principal); M54.5 Low back pain; M47.812 Spondylosis without myelopathy or radiculopathy, cervical region; M47.814 Spondylosis without myelopathy or radiculopathy, thoracic region; M47.816 Spondylosis without myelopathy or radiculopathy, lumbar region; M48.55XA Collapsed vertebra, not elsewhere classified, thoracolumbar region, initial encounter for fracture
CPT/HCPCS: 71110; 72072; 72100

== ENCOUNTER → 2020-02-10 11:49 | Outpatient (CLI) | payer MEDICARE, OTHER, SELFPAY ==
[2018-03-22 16:04] VITALS: BMI 30.2
[2020-02-10 12:54] LABS: Add Manual Diff / Slide Review NO; Basophils Absolute Auto 0 /uL (0-100); Basophils Percent Auto 0.6 % (0-2); Eosinophils Absolute Auto 300 /uL (0-450); Eosinophils Percent Auto 3.2 % (2-4); Hematocrit 34.6 % (36-46); Hemoglobin 11.4 g/dL (12.0-16.0); Lymphocytes Absolute Auto 1400 /uL (1100-4500); Lymphocytes Percent Auto 17.4 % (25-40); Mean Corpuscular HGB Conc 33.1 % (30-36); Mean Corpuscular Hemoglobin 27.3 PG (26-34); Mean Corpuscular Volume 82.6 fL (80-100); Monocytes Absolute Auto 800 /uL (0-900); Monocytes Percent Auto 10.3 % (3-14); Neutrophils Absolute Auto 5400 /uL (1500-7000); Neutrophils Percent Auto 68.5 % (50-75); Platelet Count 538 X10^3/uL (150-400); Red Blood Cell Count 4.19 X10^6/uL (4.0-5.2); Red Cell Distribution Width 14.5 % (11.6-14.8)
[2020-02-10 13:44] LABS: BUN Creatinine Ratio 22.5 (6-22); Blood Urea Nitrogen 16 mg/dL (7-17); Calcium 10.3 mg/dL (8.4-10.2); Carbon Dioxide 31 mmol/L (22-32); Chloride 101 mmol/L (98-107); Estimated Glomerular Filt Rate > 60.0 mL/min (>60); Glucose 102 mg/dL (80-110); HEMOLYSIS < 15 (0-50); Potassium 4.3 mmol/L (3.4-5.1); Sodium 136 mmol/L (137-145)
[2020-02-12 08:21] LABS: COVID19 Sendout Not Detected (Not Detect)
== END ==
PROVIDERS: PCP Internal Medicine; Referring Provider Orthopaedic Surgery; Visit Provider Physician Assistant
DX: Z01.812 Encounter for preprocedural laboratory examination (principal); Z11.59 Encounter for screening for other viral diseases; Z01.818 Encounter for other preprocedural examination; S22.080A Wedge compression fracture of T11-T12 vertebra, initial encounter for closed fracture
CPT/HCPCS: 36415; 80048; 85025; 87635; 93005

== ENCOUNTER 2020-02-13 09:29 | Day surgery (SDC) | payer MEDICARE, OTHER, SELFPAY ==
[2018-03-22 16:04] VITALS: BMI 30.2
[2020-02-12 10:45] VITALS: BMI 31.1
[2020-02-13] VITALS (8 sets, daily range): BP systolic 111–157; BP diastolic 51–76; PULSE 11–87; RESP 15–20; TEMP 35.9–36.7; O2SAT 94–98; BMI 30.4
--- NOTE | 2020-02-13 | PATH_ITS ---
[facility] Accession Number: [id number] . 01 Material submitted: . PART A: bone - L1 VERTEBRAL BONE BIOPSY PART B: bone - T12 VERTEBRAL BONE BIOPSY . 01 Diagnosis: A. L1 Vertebral Bone, Biopsy: High-normocellular marrow for age (cellularity 30-40%), with maturing trilineage (granulocytic, erythroid and megakaryocytic) hematopoiesis and a few benign, reactive lymphoid aggregates, see microscopic description. Few scattered plasma cells also present, polyclonal/benign, see microscopic description. Negative for malignancy. . . B. T12 Vertebral Bone, Biopsy: Predominantly blood and rare hematopoietic elements without atypical lymphoid or plasma cell infiltrates. Negative for malignancy. MRV 02/20/2020 1705 Local . 01 Electronically signed: . Maryann Phan MD, Pathologist NPI- [id number] . 01 Gross description: . A. Received in formalin, labeled L1 vertebral done, and consists of multiple king-brown fragments of soft tissue measuring 1.0 x 1.0 x 0.2 cm in aggregate. The specimen is filtered and entirely submitted in cassette A1. B. Received in formalin, labeled T12 vertebral bone, and consists of multiple red-brown fragments of soft tissue measuring 0.8 x 0.6 x 0.2 cm in aggregate. The specimen is filtered and entirely submitted in cassette B1. ([id number]) /MRV 02/14/2020 1212 Local . 01 Microscopic: . A. Microscopic examination reveals hematopoietic marrow, high normocellular for age, with a few well-circumscribed nodular interstitial lymphoid aggregates. These aggregates are composed of small mature lymphocytes without atypical forms present. A limited panel of immunostains is performed with the following results: . CD3: T lymphocytes positive. CD20: B lymphocytes positive. CD138: Few plasma cells in interstitial and perivascular location positive, 2%-3%. Vineyard light chain immunostain: Subset of plasma cells positive. Lambda light chain immunostain: Subset of plasma cells positive. POLINA (panepithelial marker): Negative (negative for carcinoma). . Based on the above immunohistochemistry, the lymphoid aggregates are composed of a mixed population of T lymphocytes (predominant lymphocyte population) and B lymphocytes. . These findings support reactive/benign lymphoid aggregates. . CD138 highlights plasma cells in interstitial and perivascular location, and kappa and lambda light chain immunostains support polyclonal plasma cells, therefore, reactive/benign plasma cells, 2%-3%. . Negative POLINA does not support the presence of carcinoma. . Overall the above described changes (high-normocellular marrow with reactive lymphoid aggregates and reactive plasma cells) are favored to represent secondary changes to the reported bone fractures. . Clinical and radiologic correlation is recommended. . * This test was developed and its performance characteristics determined by [facility]. It has not been cleared or approved by the U.S. Food and Drug Administration. The FDA has determined that such clearance or approval is not necessary. This test is used for clinical purposes. It should not be regarded as investigational or for research. . 01 Pathologist provided ICD-10: S22.080A, S32.010A . 01 CPT . 252787, 351924, H72003, Z05455 Performed at: [address] [facility], [place], [place] [id number] MD Taz Mckeon MD Phone: [phone]
[2020-02-13] MEDS: LACTATED RINGERS 1,000 ML 42 ML IV (10:25)
--- NOTE | 2020-02-13 10:37 | PM.PREOP ---
Pre-operative Note COVID-19 COVID-19 status: Negative Result date/Date tested (Pos, Neg/Pending): 02/10/20 Interval Note History & Physical reviewed/Exam performed by Physician: Yes Changes to H&P: No
--- NOTE | 2020-02-13 11:00 | DI.RAD.S_ITS ---
PROCEDURE: XR TAND L SPINE 6 PLUS VIEWS INDICATIONS: T-12, L-1 KYPHOPLASTY TECHNIQUE: 2 views acquired of the thoracolumbar spine. COMPARISON: [facility], [place], XR THORACIC SPINE 3V, 01/21/2020, 12:22. FINDINGS: Spot fluoroscopic intraoperative images demonstrating T12 and L1 kyphoplasties Dictated by: Shahid Enciso M.D. on 02/13/2020 at 15:42 Approved by: Shahid Enciso M.D. on 02/13/2020 at 15:44
--- NOTE | 2020-02-13 11:03 | SUR.OPER ---
Prone on spine table with flat top, head in foam head support, gel pad at knees, lower legs supported by pillows; nipples, genitalia and toes free of pressure, arms secured on foam padded arm boards at <90 degrees abduction. Tape over blanket at thigh secured to table.
[2020-02-13] MEDS: CEFAZOLIN 2 GM/100 ML FROZ.PIGGY IV (11:15)
[2020-02-13] MEDS: BUPIVACAINE 0.25% W/ EPI 30 ML VIAL 60 ML INJ (11:33)
--- NOTE | 2020-02-13 11:56 | P.OP_ITS ---
Operative Date/Time/Diagnoses Date of procedure: 02/13/20 Time of procedure: 11:56 Pre-op diagnosis: T12 and L1 compression fractures Osteoporosis Back pain Post-op diagnosis: same Procedure & Clinicians Procedure: T12 and L1 kyphoplasties Same procedure as scheduled: Yes Indications: [age] year old female with intractable pain from osteoporotic compression fractures. They had failed conservative management and requested operative intervention. Risks and benefits of surgery were discussed and appropriate consents were obtained. Surgeon: Jasson Pollard Click Yes if Unassisted: Yes Anesthesia Type: General Operative Notes Findings: None Closure Type: primary Specimen(s): other (T12 and L1 vertebral biopsies) Estimated Blood Loss (mL): 5 Procedure in detail: The patient was brought to the operating room and intubated on the table. They were then rolled over to the well-padded prone position. Time-out was performed. We confirmed positioning with two fluoroscopy views. The back was prepped and draped in the standard sterile fashion. Preoperative antibiotics were given. Using fluoroscopic guidance, the planned incision site was infiltrated with Marcaine with epinephrine and injected down to the entry site of the left pedicles of T12 and L1. A small stab incision was made and we advanced a Jamshiedi needle down the left pedicles into the vertebral bodies. A bone biopsy was harvested from each and sent to pathology. We then passed the DFine osteotome and opened it up to create a void inside the vertebral bodies. We then began injecting the cement. This was done with frequent fluoroscopy imaging. There was no extravasation. Once we had good fill of the L1 vertebral body the injection was stopped and the trocar was removed. We then injected cement into T12. There is no extravasation. The trocar was removed. Final x- rays were taken. The wound was cleaned. Steri-Strips and sterile dressing were placed. Patient was rolled over, extubated, and brought to recovery without complications. Complications: none Post-operative Condition: stable Disposition: PACU Plan for aftercare: Outpatient. Activity as tolerated.
[2020-02-13] MEDS: ALBUTEROL 2.5 MG/3 ML NEB (ADULT) INH (12:05)
[2020-02-13] MEDS: ACETAMINOPHEN 325 MG TABLET 650 MG PO (12:28)
== END 2020-02-13 13:05 | disposition home or self-care (01) ==
PROVIDERS: PCP Internal Medicine; Referring Provider Orthopaedic Surgery; Visit Provider Orthopaedic Surgery
PROC: (CPT 22513; principal; 2020-02-13 11:15)
DX: S22.080A Wedge compression fracture of T11-T12 vertebra, initial encounter for closed fracture (principal); S32.010A Wedge compression fracture of first lumbar vertebra, initial encounter for closed fracture; M80.00XA Age-related osteoporosis with current pathological fracture, unspecified site, initial encounter for fracture; M54.5 Low back pain; M80.08XA Age-related osteoporosis with current pathological fracture, vertebra(e), initial encounter for fracture; W01.190A Fall on same level from slipping, tripping and stumbling with subsequent striking against furniture, initial encounter; E66.9 Obesity, unspecified; K21.9 Gastro-esophageal reflux disease without esophagitis; J45.909 Unspecified asthma, uncomplicated; I10 Essential (primary) hypertension
CPT/HCPCS: 22513; 22515; 72084; 76000; C1776; J0690; J1100; J2405; J2704; J3010; J7613

== ENCOUNTER → 2020-07-27 14:45 | Outpatient (CLI) | payer MEDICARE, OTHER, SELFPAY ==
[2018-03-22 16:04] VITALS: BMI 30.2
[2020-07-27] MEDS: COVID-19 VACC, Ad26(JANSSEN)/PF 0.5 ML IM (15:00)
== END ==
PROVIDERS: PCP Internal Medicine; Visit Provider Internal Medicine
DX: Z23 Encounter for immunization (principal)
CPT/HCPCS: 0031A; 91303

== ENCOUNTER → 2020-08-12 09:37 | Outpatient (CLI) | payer MEDICARE, OTHER, SELFPAY ==
[2018-03-22 16:04] VITALS: BMI 30.2
[2020-08-12 10:59] LABS: Alanine Aminotransferase 21 IU/L (<35); Albumin 3.9 g/dL (3.5-5.0); Albumin Globulin Ratio 1.3 (1.0-2.8); Alkaline Phosphatase 156 U/L (38-126); Aspartate Aminotransferase 33 IU/L (14-36); BUN Creatinine Ratio 22.9 (6-22); Bilirubin Total 0.2 mg/dL (0.2-1.3); Blood Urea Nitrogen 16 mg/dL (7-17); Calcium 10.7 mg/dL (8.4-10.2); Carbon Dioxide 27 mmol/L (22-32); Chloride 106 mmol/L (98-107); Cholesterol 222 mg/dL (140-199); Estimated Glomerular Filt Rate > 60.0 mL/min (>60); Glucose 94 mg/dL (80-110); HDL Cholesterol 84 mg/dL (40-60); HEMOLYSIS < 15 (0-50); LDL Cholesterol Calculated 127 mg/dL (<100); Potassium 4.3 mmol/L (3.4-5.1); Sodium 139 mmol/L (137-145); Total Protein 6.9 g/dL (6.3-8.2); Triglycerides 56 mg/dL (35-150)
[2020-08-12 11:15] LABS: Vitamin D 25 Hydroxy (D3) 39.8 ng/mL (30.0-100.0)
== END ==
PROVIDERS: PCP Internal Medicine; Referring Provider Internal Medicine; Visit Provider Internal Medicine
DX: I10 Essential (primary) hypertension (principal)
CPT/HCPCS: 36415; 80053; 80061; 82306

== ENCOUNTER → 2021-01-08 14:50 | Outpatient (CLI) | payer MEDICARE, OTHER, SELFPAY ==
[2018-03-22 16:04] VITALS: BMI 30.2
--- NOTE | 2021-01-08 | DI.MG.S_ITS ---
BILATERAL DIGITAL SCREENING MAMMOGRAM 3D/2D WITH CAD: 01/08/2021 CLINICAL: Routine screening. Comparison is made to exams dated: 12/30/2019 mammogram, 11/26/2018 mammogram, and 10/25/2017 mammogram - [facility]. The tissue of both breasts is predominantly fatty. Current study was also evaluated with a Computer Aided Detection (CAD) system. There are benign vascular calcifications in both breasts. No significant masses, calcifications, or other findings are seen in either breast. There has been no significant interval change. IMPRESSION: BENIGN There is no mammographic evidence of malignancy. A 1 year screening mammogram is recommended. This exam was interpreted at Station ID: [id number]. NOTE: For mammograms, a report in lay terms will be sent to the patient. Approximately 15% of breast malignancies will not be visualized mammographically. In the management of a palpable breast mass, a negative mammogram must not discourage biopsy of a clinically suspicious lesion. Electronically Signed By: Diego cotton/kenyatta:01/08/2021 15:51:53 letter sent: Normal Exam ACR BI-RADS Category 2: Benign Finding(s) 3342F
== END ==
PROVIDERS: PCP Internal Medicine; Referring Provider Internal Medicine; Visit Provider Internal Medicine
DX: Z12.31 Encounter for screening mammogram for malignant neoplasm of breast (principal)
CPT/HCPCS: 77063; 77067

== ENCOUNTER → 2021-02-10 09:36 | Outpatient (CLI) | payer MEDICARE, OTHER, SELFPAY ==
[2018-03-22 16:04] VITALS: BMI 30.2
--- NOTE | 2021-02-10 | DI.MRI.S_ITS ---
PROCEDURE: MR LUMBAR SPINE WO CON INDICATIONS: Low back pain TECHNIQUE: Noncontrast sagittal T1 spin echo and T2 fast echo, sagittal STIR, axial T1 and T2 fast spin echo through the lumbar spine. In cases with scoliosis, additional coronal T2 fast spin echo may be performed. COMPARISON: [facility], CR, XR TAND L SPINE 6 PLUS VIEWS, 02/13/2020, 11:29. [facility], CR, XR LUMBAR SPINE 2-3V, 01/21/2020, 12:22. FINDINGS: Image quality: Excellent. Alignment and Curvature: There is Bone Marrow: Marrow is of normal overall signal. No acute vertebral body compression fractures. Changes of previous kyphoplasty are present at T12 and L1 with appearance of compression deformities. Spinal Cord: Conus medullaris terminates at the L2 level. Visualized cord demonstrates normal signal and size. Paraspinous Soft Tissues: No paravertebral masses. Discs: Moderate to severe desiccation is present throughout the lumbar spine. T12-L1: Mild posterior disc osteophyte complex is present with mild spinal stenosis. No foraminal narrowing. L1-L2: Mild disc bulge without spinal stenosis or foraminal narrowing. Facet and ligamentum flavum hypertrophy are present. L2-L3: Mild disc bulge with minimal spinal stenosis. Minimal right foraminal narrowing with facet and ligamentum flavum hypertrophy. L3-L4: Mild bulge with lfve-sy-oogmvcpt spinal stenosis. Moderate bilateral foraminal narrowing with facet and ligamentum flavum hypertrophy. L4-L5: Mild disc bulge with moderate spinal stenosis. Severe left and moderate to severe right foraminal narrowing with facet and ligamentum flavum hypertrophy. L5-S1: Mild disc bulge with bive-by-qwruxzsy spinal stenosis. Moderate bilateral foraminal narrowing with facet and ligamentum flavum hypertrophy. IMPRESSION: 1. T12 and L1 compression deformities with kyphoplasty changes. 2. Multilevel spinal stenosis most notable at L4-5 secondary to disc bulge with contributing effect of facet/ligamentum flavum arthropathy. 3. Multilevel foraminal narrowing most severe at L4-5 secondary to facet arthropathy. Dictated by: Cathy Estrella M.D. on 02/10/2021 at 12:11 Approved by: Cathy Estrella M.D. on 02/10/2021 at 12:56
== END ==
PROVIDERS: PCP Internal Medicine; Referring Provider Orthopaedic Surgery; Visit Provider Orthopaedic Surgery
DX: M54.5 Low back pain; S32.010A Wedge compression fracture of first lumbar vertebra, initial encounter for closed fracture; M48.061 Spinal stenosis, lumbar region without neurogenic claudication; M48.07 Spinal stenosis, lumbosacral region; M47.816 Spondylosis without myelopathy or radiculopathy, lumbar region; M47.817 Spondylosis without myelopathy or radiculopathy, lumbosacral region; G89.29 Other chronic pain
CPT/HCPCS: 72148

== ENCOUNTER → 2021-06-22 13:56 | Outpatient (CLI) | payer MEDICARE, OTHER, SELFPAY ==
[2018-03-22 16:04] VITALS: BMI 30.2
== END ==
PROVIDERS: PCP Internal Medicine; Referring Provider Internal Medicine; Visit Provider Internal Medicine
DX: M85.832 Other specified disorders of bone density and structure, left forearm (principal); Z78.0 Asymptomatic menopausal state; Z82.62 Family history of osteoporosis
CPT/HCPCS: 77080

== ENCOUNTER → 2021-10-09 11:22 | Outpatient (CLI) | payer MEDICARE, OTHER, SELFPAY ==
[2018-03-22 16:04] VITALS: BMI 30.2
[2021-10-09 12:59] LABS: BUN Creatinine Ratio 22.2 (6-22); Blood Urea Nitrogen 18 mg/dL (7-17); Carbon Dioxide 31 mmol/L (22-32); Chloride 103 mmol/L (98-107); Estimated Glomerular Filt Rate > 60 mL/min (>60); Glucose 79 mg/dL (80-110); HEMOLYSIS < 15 (0-50); Potassium 4.7 mmol/L (3.4-5.1); Sodium 138 mmol/L (137-145)
== END ==
PROVIDERS: PCP Internal Medicine; Referring Provider Obstetrics & Gynecology; Visit Provider Obstetrics & Gynecology
DX: Z01.812 Encounter for preprocedural laboratory examination (principal)
CPT/HCPCS: 36415; 80048

== ENCOUNTER → 2021-10-14 09:26 | Outpatient (CLI) | payer MEDICARE, OTHER, SELFPAY ==
[2018-03-22 16:04] VITALS: BMI 30.2
--- NOTE | 2021-10-14 09:29 | DI.CT.S_ITS ---
PROCEDURE: CT PELVIS W CON INDICATIONS: Pelvic Pain TECHNIQUE: After the administration of oral contrast and intravenous contrast, 5 mm thick sections acquired from the iliac crests to the symphysis. 5 mm thick coronal and sagittal reformats were acquired. For radiation dose reduction, the following was used: automated exposure control, adjustment of mA and/or kV according to patient size. COMPARISON: [facility], MR, HIP WITHOUT CONTRAST, 12/09/2015, 15:33. [facility], CR, XR PELVIS W LATERAL HIP RT, 07/07/2015, 10:07. [facility], US, US PELVIC COMPLETE, 10/07/2021, 13:49. FINDINGS: Image quality: Excellent. Peritoneum and bowel: Contrast enhanced bowel loops demonstrate normal wall thickness and caliber. Normal appendix. No free fluid or air. Genitourinary: Bladder wall thickness is normal. Distal ureters are nondilated. Ovaries are symmetric and age-appropriate in size. The uterus is unremarkable. Nodes and vessels: No iliac, pelvic, or inguinal adenopathy. Iliac vessels demonstrate normal size and enhancement. Minimal aortoiliac atherosclerosis. Bones: No suspicious bony lesions. Old healed fracture deformity is seen at the left inferior pubic ramus. No acute osseous fracture is seen. Multilevel degenerative changes are seen in the included spine with bridging osteophyte formation. Mild degenerative changes are seen in the hips. There is partial fatty infiltration of the right gluteus medius and minimus musculature. However, the tendons, ligaments, and articular cartilages are not well evaluated with standard CT. Miscellaneous: No inguinal hernias. IMPRESSION: 1. No acute abnormality is seen in the pelvis to account for the reported pain. 2. Asymmetric fatty infiltration of the right gluteus medius and minimus musculature is consistent with underlying chronic partial or complete tendon tearing. Findings do not appear significantly changed in extent when compared to the MRI from 12/09/2015. No significant right trochanteric bursal effusion. 3. Degenerative changes are seen in the included lumbar spine. Dictated by: Jesus Guillen M.D. on 10/15/2021 at 8:48 Approved by: Jesus Guillen M.D. on 10/15/2021 at 8:59
== END ==
PROVIDERS: PCP Internal Medicine; Referring Provider Obstetrics & Gynecology; Visit Provider Obstetrics & Gynecology
DX: R10.2 Pelvic and perineal pain (principal); M47.816 Spondylosis without myelopathy or radiculopathy, lumbar region
CPT/HCPCS: 72193; Q9967

== ENCOUNTER → 2022-01-25 13:59 | Outpatient (CLI) | payer MEDICARE, OTHER, SELFPAY ==
[2018-03-22 16:04] VITALS: BMI 30.2
--- NOTE | 2022-01-25 | DI.MG.S_ITS ---
BILATERAL DIGITAL SCREENING MAMMOGRAM 3D/2D WITH CAD: 01/25/2022 CLINICAL: Routine screening. Comparison is made to exams dated: 01/08/2021 mammogram, 12/30/2019 mammogram, and 11/26/2018 mammogram - [facility]. Both breasts are almost entirely fatty (category a/<25% glandular tissue). Current study was also evaluated with a Computer Aided Detection (CAD) system. There are benign vascular calcifications in both breasts. No significant masses, calcifications, or other findings are seen in either breast. There has been no significant interval change. IMPRESSION: BENIGN There is no mammographic evidence of malignancy. A 1 year screening mammogram is recommended. Based on the Tyrer Cuzick model (a risk assessment model) the patient's lifetime risk is 1.0% and her 10 year risk is 0.0%. According to the ACR, ACS, and NCCN guidelines, an annual breast MRI exam along with mammogram is recommended if the patient's lifetime risk is 20% or greater. This exam was interpreted at Station ID: [id number]. NOTE: For mammograms, a report in lay terms will be sent to the patient. Approximately 15% of breast malignancies will not be visualized mammographically. In the management of a palpable breast mass, a negative mammogram must not discourage biopsy of a clinically suspicious lesion. Electronically Signed By: Jesus [email or web address]/[email or web address]:01/25/2022 16:45:59 letter sent: Normal Exam ACR BI-RADS Category 2: Benign Finding(s) 3342F
== END ==
PROVIDERS: PCP Internal Medicine; Referring Provider Internal Medicine; Visit Provider Internal Medicine
DX: Z12.31 Encounter for screening mammogram for malignant neoplasm of breast (principal)
CPT/HCPCS: 77063; 77067

== ENCOUNTER → 2022-10-26 09:45 | Outpatient (CLI) | payer MEDICARE, OTHER, SELFPAY ==
[2018-03-22 16:04] VITALS: BMI 30.2
[2022-10-26 11:39] LABS: Alanine Aminotransferase 23 IU/L (<35); Albumin Globulin Ratio 1.3 (1.0-2.8); Alkaline Phosphatase 114 U/L (38-126); Aspartate Aminotransferase 35 IU/L (14-36); BUN Creatinine Ratio 30.7 (6-22); Bilirubin Total 0.4 mg/dL (0.2-1.3); Blood Urea Nitrogen 23 mg/dL (7-17); Calcium 10.4 mg/dL (8.4-10.2); Carbon Dioxide 30 mmol/L (22-32); Chloride 101 mmol/L (98-107); Estimated Glomerular Filt Rate > 60 mL/min (>60); Globulin 3.2 g/dL (1.7-4.1); Glucose 91 mg/dL (80-110); HEMOLYSIS < 15 (0-50); Potassium 4.2 mmol/L (3.4-5.1); Sodium 137 mmol/L (137-145); Total Protein 7.2 g/dL (6.3-8.2)
[2022-10-26 11:57] LABS: Vitamin D 25 Hydroxy (D3) 51.9 ng/mL (30.0-100.0)
[2022-10-28 08:18] LABS: Parathyroid Hormone Int 46 pg/mL (15-65)
== END ==
PROVIDERS: PCP Internal Medicine; Referring Provider Internal Medicine Endocrinology, Diabetes & Metabolism; Visit Provider Internal Medicine Endocrinology, Diabetes & Metabolism
DX: M81.0 Age-related osteoporosis without current pathological fracture (principal)
CPT/HCPCS: 36415; 80053; 82306; 83970

== ENCOUNTER → 2022-10-28 11:05 | Outpatient (CLI) | payer MEDICARE, OTHER, SELFPAY ==
[2018-03-22 16:04] VITALS: BMI 30.2
[2022-10-28 15:13] LABS: Calcium 24 Hour Urine 53 mg/day (100-300); Calcium Urine Random 3.2 mg/dL; Collection Time Urine 24 Hours; Total Volume Urine 1650 mL
[2022-11-01 14:12] LABS: Creatinine, Urine 42.9 mg/dL (Not Estab.); N-telo/Creat. Ratio 10 (0-89); N-telopeptide 37 nmol BCE (Not Estab.)
== END ==
PROVIDERS: PCP Internal Medicine; Referring Provider Internal Medicine Endocrinology, Diabetes & Metabolism; Visit Provider Internal Medicine Endocrinology, Diabetes & Metabolism
DX: M81.0 Age-related osteoporosis without current pathological fracture (principal)
CPT/HCPCS: 82340; 82523; 82570

== ENCOUNTER → 2023-01-30 09:24 | Outpatient (CLI) | payer MEDICARE, OTHER, SELFPAY ==
[2018-03-22 16:04] VITALS: BMI 30.2
[2023-01-30 11:52] LABS: BUN Creatinine Ratio 26.8 (6-22); Blood Urea Nitrogen 22 mg/dL (7-17); Calcium 10.9 mg/dL (8.4-10.2); Carbon Dioxide 29 mmol/L (22-32); Chloride 102 mmol/L (98-107); Estimated Glomerular Filt Rate > 60 mL/min (>60); Glucose 87 mg/dL (80-110); HEMOLYSIS < 15 (0-50); Potassium 4.6 mmol/L (3.4-5.1); Sodium 136 mmol/L (137-145)
[2023-02-01 06:36] LABS: Parathyroid Hormone Int 22 pg/mL (15-65)
== END ==
PROVIDERS: Family Provider Internal Medicine; PCP Internal Medicine; Referring Provider Internal Medicine Endocrinology, Diabetes & Metabolism; Visit Provider Internal Medicine Endocrinology, Diabetes & Metabolism
DX: E83.52 Hypercalcemia (principal)
CPT/HCPCS: 36415; 80048; 82306; 83970

== ENCOUNTER → 2023-02-02 14:10 | Outpatient (CLI) | payer MEDICARE, OTHER, SELFPAY ==
[2018-03-22 16:04] VITALS: BMI 30.2
[2023-02-02 16:24] LABS: Collection Time Urine 24 Hours; Creatinine 24 Hour Urine 707 mg/day (800-1800); Creatinine Urine Random 39.3 mg/dL; Total Volume Urine 1800 mL
[2023-02-02 16:38] LABS: Calcium 24 Hour Urine 29 mg/day (100-300); Calcium Urine Random 1.6 mg/dL; Collection Time Urine 24 Hours; Total Volume Urine 1800 mL
== END ==
PROVIDERS: Family Provider Internal Medicine; PCP Internal Medicine; Referring Provider Internal Medicine Endocrinology, Diabetes & Metabolism; Visit Provider Internal Medicine Endocrinology, Diabetes & Metabolism
DX: E83.52 Hypercalcemia (principal)
CPT/HCPCS: 82340; 82570

== ENCOUNTER → 2023-02-09 12:52 | Outpatient (CLI) | payer MEDICARE, OTHER, SELFPAY ==
[2018-03-22 16:04] VITALS: BMI 30.2
--- NOTE | 2023-02-09 | DI.MG.S_ITS ---
BILATERAL DIGITAL SCREENING MAMMOGRAM 3D/2D WITH CAD: 02/09/2023 CLINICAL: Routine screening. Comparison is made to exams dated: 01/25/2022 mammogram, 01/08/2021 mammogram, 12/30/2019 mammogram, and 11/26/2018 mammogram - [facility]. There are scattered areas of fibroglandular density in both breasts (category b / 25%-50% glandular tissue). Current study was also evaluated with a Computer Aided Detection (CAD) system. There are benign vascular calcifications in both breasts. No significant masses, calcifications, or other findings are seen in either breast. There has been no significant interval change. IMPRESSION: BENIGN There is no mammographic evidence of malignancy. A 1 year screening mammogram is recommended. Based on the Tyrer Cuzick model (a risk assessment model) the patient's lifetime risk is 1.3% and her 10 year risk is 0.0%. According to the ACR, ACS, and NCCN guidelines, an annual breast MRI exam along with mammogram is recommended if the patient's lifetime risk is 20% or greater. This exam was interpreted at Station ID: [id number]. NOTE: For mammograms, a report in lay terms will be sent to the patient. Approximately 15% of breast malignancies will not be visualized mammographically. In the management of a palpable breast mass, a negative mammogram must not discourage biopsy of a clinically suspicious lesion. Electronically Signed By: Rafael [email or web address]/[email or web address]:02/09/2023 14:04:48 letter sent: Normal Exam ACR BI-RADS Category 2: Benign Finding(s) 3342F
== END ==
PROVIDERS: Family Provider Internal Medicine; PCP Internal Medicine; Referring Provider Internal Medicine; Visit Provider Internal Medicine
DX: Z12.31 Encounter for screening mammogram for malignant neoplasm of breast (principal)
CPT/HCPCS: 77063; 77067

== ENCOUNTER 2023-02-28 14:15 | Outpatient (RCR) | payer MEDICARE, OTHER, SELFPAY ==
[2018-03-22 16:04] VITALS: BMI 30.2
--- NOTE | 2023-01-24 15:56 | ST.OPIE ---
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 Voice Resonance Evaluation Start: 01/24/23 10:29 Freq: Status: Active Protocol: Document 01/24/23 12:45 DH (Rec: 01/24/23 13:18 DH [id number]) Voice and Resonance Assessment Session Time Visit Start Time 11:40 Visit Stop Time 12:55 Total Visit Minutes 75 Visit Information Visit Number 1 Plan of Care Dates 01/24/2023-04/25/2023 Next Note Type Next Note Type Treatment Note Referral Referring Physician Dr Matthew Castillo Reason for Referral dysphonia, chronic cough Setting Setting Outpatient Care Patient History Patient History 82 y/o woman with chronic cough and vocal hoarseness, increased in last 3-6 mo, referred to ST for evaluation and treatment as appropriate. Hearing Hearing Level Impaired Oral Motor Assessment Source: [place] [employer] (GLEN). Oral-Motor Eval Completed Yes Oral-Motor Assessment Facial symmetry appreciated. Dentition/dentures in fair condition. ROM and coordination of lips and tongue WNL. Palatal elevation observed. Oral hygiene adequate. Respiratory support reduced. Vocal quality hoarse with reduced loudness. Laryngeal palpation revealed high muscle tension with reduced lateral tracheal movement and high hyoidal placement, indicative of muscle tension dysphonia. - Laryngeal Performance S/Z Ratio Functional for Speech Yes Maximum Phonation Time MPT Norms: Women (15-25) Men (25-35) Loudness (50-60 dB); Speaking Rate: Oral Reading of Sentences (190 Words Per Minute); Oral Reading of Paragraphs (160-170 WPM); Speaking Rate in Conversation (150-250 WPM) Maximum Phonation Time 6 sec with vocalized ahh Maximum Phonation Time Reduced,Unstable Loudness Pitch Ferris Pitch Ferris Pitch Breaks,Reduced Range, Tension Muscle Tension Assessment Muscle Tension Assessment Jaw,Neck,Shoulders Tenderness with Palpation/Massage No Breath Support Breath Support At Rest Thoracic Breath Support Sustained Phonation Thoracic,Clavicular Breath Support Conversation Thoracic Voice Pitch Range Norms: Women (100-300 Hz) Men (70-250 Hz) Fundamental Frequency Norms: Women (Mean: 225 Hz; Range: 155-334 Hz) Men ( Mean: 128 Hz; Range: 85-196 Hz) Voice Pitch Normal Voice Loudness Moderately Soft/Quiet Voice Phonatory-based Quality Hoarse,Weak Paradoxical Vocal Fold Movement No Indications Resonance Nasal Resonance Normal Other Observations Inadequate Breath Support, Throat Clearing Therapeutic Techniques Therapy Tactics Breath Support,Increase Loudness Other Tactics vocal roughness noteably improved following extended ' ahh' trials. Findings Findings Moderate Impairment Observations Pt presents with combined muscle tension dysphonia (MTD) , and laryngeal hypersensitivity resulting in a variable hoarse and weak vocal quality and a chronic dry cough/throat clearing as demonstrated by excessive cough/throat clears observed during session and reported by patient, unrelated to food/ liquid intake. Pt diagnosed w GERD, however this appears under control with diet and medications. ST provided additional information on reflux reduction strategies. ST provided education on findings and nature of treatment for chronic cough/ laryngeal hypersensitivity and muscle tension dysphonia, with initial training on strategies for reduction of cough/throat clear and vocal relaxation exercises. Voice/Resonance Assessment Assessment Patient would benefit from skilled speech therapy to reduce laryngeal hypersensitivity/chronic cough and muscle tension dysphonia to improve vocal quality and increase participation in desired activities. Prognosis Rehabilitation Potential Excellent - Recommendations Treatment Recommended Yes Treatment Frequency/Duration 1x/wk for 12 wks Short Term Goals 1. Utilising strategies as trained, pt will suppress cough/throat clear in 90% of opportunites between two sessions. 2. Pt will complete vocal and breath support exercises in session with 75% accuracy and in 75% of recommended dosages with home program. Penitentiary Goals Patient will exhibit reduced muscle tension dysphonia and reduced laryngeal hypersensitivity as demonstrated by min/no cough /throat clearing and improved vocal quality as reported by patient Patient/Caregiver Education Patient/Family Education Patient Understanding Vocally Abusive Behavior Behavior Rating Alcohol Consumption Never [place] Talking Never Arguing (peers/siblings/other) Never Athletic Activity Yelling Never Mouth Breathing Infrequently Caffeine Use Infrequently Calling from Distance Never Cheerleading Participation Never Coughing/Sneezing Loudly Frequently Environmental Irritant Exposure Never Use of Inhalants Never Laughing Hard/Abusively Never Singing Abusively Never Smoking Never Excessive Talking Occasionally Making Animal /Toy Noises Never Yelling/Screaming Never
--- NOTE | 2023-01-31 14:14 | ST.OPTN ---
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 Treatment Note Start: 01/24/23 10:29 Freq: Status: Active Protocol: Document 01/31/23 14:02 (Rec: 01/31/23 14:10 [id number]) Speech Pathology Treatment Note Session Time Visit Start Time 13:30 Visit Stop Time 14:15 Total Visit Minutes 45 Visit Information Visit Number 2 Plan of Care Dates 01/24/2023-04/25/2023 Setting Treatment Setting Outpatient Care Visit Type Note Type Treatment Note Next Note Type Next Note Type Treatment Note General Information Patient History 82 y/o woman with chronic cough and vocal hoarseness, increased in last 3-6 mo, referred to ST for evaluation and treatment as appropriate. Subjective Identification Type Name,Date of Objective Short Term Goals 1. Utilising strategies as trained, pt will suppress cough/throat clear in 90% of opportunites between two sessions. 2. Pt will complete vocal rehab and breath support exercises in session with 75% accuracy and in 75% of recommended dosages with home program. Alf Goals Patient will exhibit reduced muscle tension dysphagia/ dysphonia and reduced laryngeal hypersensitivity as demonstrated by min/no globus sensation/throat clearing and improved vocal quality as reported by patient Assessment Patient Response to Treatment Good Rehab Potential Good Progress Towards Goals Good Progress Assessment of Overall Progress Improving Assessment of Improvement Pt stated she had been implementing the sniff/swallow cough suppression strategy in addition to increased liquid intake and the sip/swallow strategy with good results, and had noticed a moderate decrease in the need to cough over the last week. ST trained on vocal exercies and strategies of front of mouth hum, yawn/sigh, confidential voice, diaphragmatic breathing w extended 'ahh, pitch glides, and straw phonation. Pt demonstarted mild difficulty w front of mouth hum and moderate difficulty w pitch glides. ST increased visual examples and verbal cues w some improvement. pt to continue to practice, but if unable to complete, ST recommended increasing time w straw phonation exercise, which the pt did very well with. ST provided handouts with recommended home exercise program dosages. Reviewed with Patient Progress Being Made,Home Exercise Program Patient/Caregiver Understanding Good Plan Frequency of Treatment Once a Week Length of Session 45 Minutes Provided Patient/Caregiver Instruction Home Exercise Program, Questions/Concerns Therapy Recommendations Continue with Current Program
--- NOTE | 2023-02-07 15:19 | ST.OPTN ---
Visit Care Team Role Provider Type Ayla El MD Family Provider Physician Primary Care Provider Address: [place], [address] Phone: Matthew Castillo MD Attending Provider Physician Referring Provider Address: [address] [place] [address] [place], [address] [employer] Treatment Note [employer] Treatment Note Start: 01/24/23 10:29 Freq: Status: Active Protocol: Document 02/07/23 15:12 (Rec: 02/07/23 15:19 [id number]) Speech Pathology Treatment Note Session Time Visit Start Time 14:30 Visit Stop Time 15:15 Total Visit Minutes 45 Visit Information Visit Number 3 Plan of Care Dates 01/24/2023-04/25/2023 Setting Treatment Setting Outpatient Care Visit Type Note Type Treatment Note Next Note Type Next Note Type Treatment Note General Information Patient History 82 y/o woman with chronic cough and vocal hoarseness, increased in last 3-6 mo, referred to ST for evaluation and treatment as appropriate. Subjective Identification Type Name,Date of Objective Short Term Goals 1. Utilising strategies as trained, pt will suppress cough/throat clear in 90% of opportunites between two sessions. 2. Pt will complete vocal rehab and breath support exercises in session with 75% accuracy and in 75% of recommended dosages with home program. Prison Goals Patient will exhibit reduced muscle tension dysphagia/ dysphonia and reduced laryngeal hypersensitivity as demonstrated by min/no globus sensation/throat clearing and improved vocal quality as reported by patient Assessment Patient Response to Treatment Good Rehab Potential Good Progress Towards Goals Good Progress Assessment of Overall Progress Improving Assessment of Improvement Pt stated she had been implementing the sniff/swallow cough suppression strategy in addition to increased liquid intake and the sip/swallow strategy with good results, as well as utilizing Ricola lozenges, and had noticed a further decrease in the need to cough over the last week. She did have one incident in the grocery store of the strong coughing episode. ST reviewed importance of attempting to suppress and that the mucas coughed up by the end of the episode was actually created by the episode, not there previously. ST trained in working memory strategies to assist in more immediate recall of suppression strategies as needed w good return. ST trained on vocal exercies and strategies of diaphragmatic breathing w extended 'ahh, pitch glides, and straw phonation. Pt demonstarted continued difficulty w pitch glides. ST increased visual examples and verbal cues w some improvement . pt to continue to practice, but if unable to complete, ST recommended increasing time w straw phonation exercise, which the pt did very well with following some practice w clinician. Pt stated she was completing exercises in the am , but not at other times succssfully. ST recommended attaching to other tasks or notes/alarms as reminders. Pt 's vocal quality demonstrated mild improvement from previous session. Reviewed with Patient Progress Being Made,Home Exercise Program Patient/Caregiver Understanding Good Plan Frequency of Treatment Once a Week Length of Session 45 Minutes Provided Patient/Caregiver Instruction Home Exercise Program, Questions/Concerns Therapy Recommendations Continue with Current Program
--- NOTE | 2023-02-14 15:01 | ST.OPTN ---
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 Subjective Identification Type Name,Date of Objective Short Term Goals 1. Utilising strategies as trained, pt will suppress cough/throat clear in 90% of opportunites between two sessions. 2. Pt will complete vocal rehab and breath support exercises in session with 75% accuracy and in 75% of recommended dosages with home program. Shelter Goals Patient will exhibit reduced muscle tension dysphagia/ dysphonia and reduced laryngeal hypersensitivity as demonstrated by min/no globus sensation/throat clearing and improved vocal quality as reported by patient Assessment Patient Response to Treatment Good Rehab Potential Good Progress Towards Goals Good Progress Assessment of Overall Progress Improving Assessment of Improvement Pt stated she has been practicing cough suppression techniques through out the day as recommended and utilized memory strategies to assist in recall. pt stated she been sucessful in cough supression in roughly 75% of opportunities and had noticed a further decrease in the need to cough over the last week. ST reviewed importance of attempting to suppress with a goal of 90% of opportunities and that the mucas coughed up by the end of the episode was actually created by the episode, not there previously. ST reviewed vocal exercises and strategies of diaphragmatic breathing w extended 'ahh, pitch glides, and straw phonation. Pt demonstrated continued difficulty w pitch glides. ST discontinued as an exercise and increased goal for number of diaphramatic breaths w extended ahh' to sets of 30, 2-3x/day. Pt stated she was completing exercises in the am , but not at other times successfully. ST recommended breaking up exercises, including recommendation of 1- 3 minutes of straw phonation being a better option than attempting one 10 min session. Pt's vocal quality again demonstrated improvement from previous session. Reviewed with Patient Progress Being Made,Home Exercise Program Patient/Caregiver Understanding Good Plan Frequency of Treatment Once a Week Length of Session 45 Minutes Provided Patient/Caregiver Instruction Home Exercise Program, Questions/Concerns Therapy Recommendations Continue with Current Program
--- NOTE | 2023-02-28 14:57 | ST.OPTN ---
Visit Care Team Role Provider Type Ayla El MD Family Provider Physician Primary Care Provider Address: [place], [address] Matthew Castillo MD Attending Provider Physician Referring Provider Address: [address] [place] [address] [place], [address] STATISTICAL SECRETARY Treatment Note STATISTICAL SECRETARY Treatment Note Start: 01/24/23 10:29 Freq: Status: Active Protocol: Document 02/28/23 14:49 (Rec: 02/28/23 14:57 [id number]) Speech Pathology Treatment Note Session Time Visit Start Time 14:15 Visit Stop Time 14:50 Total Visit Minutes 35 Visit Information Visit Number 5 Plan of Care Dates 01/24/2023-04/25/2023 Setting Treatment Setting Outpatient Care Visit Type Note Type Treatment Note Next Note Type Next Note Type Treatment Note General Information Patient History 82 y/o woman with chronic cough and vocal hoarseness, increased in last 3-6 mo, referred to ST for evaluation and treatment as appropriate. Subjective Identification Type Name,Date of Objective Short Term Goals 1. Utilising strategies as trained, pt will suppress cough/throat clear in 90% of opportunites between two sessions. 2. Pt will complete vocal rehab and breath support exercises in session with 75% accuracy and in 75% of recommended dosages with home program. Jail Goals Patient will exhibit reduced muscle tension dysphagia/ dysphonia and reduced laryngeal hypersensitivity as demonstrated by min/no globus sensation/throat clearing and improved vocal quality as reported by patient Assessment Patient Response to Treatment Good Rehab Potential Good Progress Towards Goals Good Progress Assessment of Overall Progress Improving Assessment of Improvement Pt stated she has been practicing cough suppression techniques occassionally while in car. She stated she seems to have regressed with increased difficulty in suppression but that she had also been cleaning singh closets and may have actual increased post nasal drip/ allergies. Pt stated she had stopped taking her claritin as allergy season was over. ST recommended if planning to continue cleaning to resume claritin and utilize a mask for cleaning. ST facilitated practice of vocal exercises, pt stated she was trying to complete as directed but continued to had difficulty w dosage. Pt initially demonstrated difficulty w supported extended 'aah. ST reviewed exerices and increased verbal and visual cues w good return. Pt completed front of mouth hum and straw phonation w 90% accuracy. ST reviewed goal for number of diaphramatic breaths w extended ahh' to sets of 30, 2-3x/day. Pt's vocal quality initially very gravelly but improved following completion of execises. Pt to complete increased home exercises and return in two weeks. Reviewed with Patient Progress Being Made,Home Exercise Program Patient/Caregiver Understanding Good Plan Frequency of Treatment Once a Week Length of Session 45 Minutes Provided Patient/Caregiver Instruction Home Exercise Program, Questions/Concerns Therapy Recommendations Continue with Current Program
--- NOTE | 2023-03-13 10:31 | ST.OPDS ---
Visit Care Team Role Provider Type Ayla El MD Family Provider Physician Primary Care Provider Address: [place], [address] Matthew Castillo MD Attending Provider Physician Referring Provider Address: [address] [place] [address] [place], [address] OPERATIONS SUPPORT ANALYST Discharge Summary OPERATIONS SUPPORT ANALYST Treatment Note Start: 01/24/23 10:29 Freq: Status: Active Protocol: Document 02/28/23 14:49 (Rec: 02/28/23 14:57 [id number]) Speech Pathology Treatment Note Session Time Visit Start Time 14:15 Visit Stop Time 14:50 Total Visit Minutes 35 Visit Information Visit Number 5 Plan of Care Dates 01/24/2023-04/25/2023 Setting Treatment Setting Outpatient Care Visit Type Note Type Treatment Note Next Note Type Next Note Type Treatment Note General Information Patient History 82 y/o woman with chronic cough and vocal hoarseness, increased in last 3-6 mo, referred to ST for evaluation and treatment as appropriate. Subjective Identification Type Name,Date of Objective Short Term Goals 1. Utilising strategies as trained, pt will suppress cough/throat clear in 90% of opportunites between two sessions. 2. Pt will complete vocal rehab and breath support exercises in session with 75% accuracy and in 75% of recommended dosages with home program. Magazine Worker Goals Patient will exhibit reduced muscle tension dysphagia/ dysphonia and reduced laryngeal hypersensitivity as demonstrated by min/no globus sensation/throat clearing and improved vocal quality as reported by patient Assessment Patient Response to Treatment Good Rehab Potential Good Progress Towards Goals Good Progress Assessment of Overall Progress Improving Assessment of Improvement Patient has decided to discontinue ST at this time, possibly d/t difficulty w suppression given high allergies she is currently experiencing. Most recent session notes demonstrate good use of strategies when able and progress when not experiencing allergies. Most recent session notes: Pt stated she has been practicing cough suppression techniques occasionally while in car. She stated she seems to have regressed with increased difficulty in suppression but that she had also been cleaning singh closets and may have actual increased post nasal drip/ allergies. Pt stated she had stopped taking her claritin as allergy season was over. ST recommended if planning to continue cleaning to resume claritin and utilize a mask for cleaning. ST facilitated practice of vocal exercises, pt stated she was trying to complete as directed but continued to had difficulty w dosage. Pt initially demonstrated difficulty w supported extended 'aah. ST reviewed exercises and increased verbal and visual cues w good return. Pt completed front of mouth hum and straw phonation w 90% accuracy. ST reviewed goal for number of diaphramatic breaths w extended ahh' to sets of 30, 2-3x/day. Pt's vocal quality initially very gravelly but improved following completion of exercises. Pt to complete increased home exercises and return in two weeks. Reviewed with Patient Progress Being Made,Home Exercise Program Patient/Caregiver Understanding Good Plan Frequency of Treatment Once a Week Length of Session 45 Minutes Provided Patient/Caregiver Instruction Home Exercise Program, Questions/Concerns Therapy Recommendations Continue with Current Program
== END 2023-03-15 07:43 | disposition home or self-care (01) ==
LOC: SP 14:15
PROVIDERS: Family Provider Internal Medicine; PCP Internal Medicine; Referring Provider Otolaryngology; Visit Provider Otolaryngology
DX: R09.82 Postnasal drip (principal); R49.0 Dysphonia; R05.3 Chronic cough
CPT/HCPCS: 92507; 92524

== ENCOUNTER → 2023-05-17 10:48 | Outpatient (CLI) | payer MEDICARE, OTHER, SELFPAY ==
[2018-03-22 16:04] VITALS: BMI 30.2
[2023-05-17 12:21] LABS: Blood Urea Nitrogen 18 mg/dL (7-17); Calcium 10.9 mg/dL (8.4-10.2); Carbon Dioxide 29 mmol/L (22-32); Chloride 101 mmol/L (98-107); Estimated Glomerular Filt Rate > 60 mL/min (>60); Glucose 93 mg/dL (80-110); HEMOLYSIS < 15 (0-50); Sodium 136 mmol/L (137-145)
[2023-05-17 12:36] LABS: Free T4, Direct Thyroxine 1.19 ng/dL (0.78-2.19)
[2023-05-17 12:50] LABS: Thyroid Stimulating Hormone 3.75 uIU/mL (0.47-4.68)
[2023-05-18 07:38] LABS: Parathyroid Hormone Int 38 pg/mL (15-65)
== END ==
PROVIDERS: Family Provider Internal Medicine; PCP Internal Medicine; Referring Provider Internal Medicine Endocrinology, Diabetes & Metabolism; Visit Provider Internal Medicine Endocrinology, Diabetes & Metabolism
DX: E83.52 Hypercalcemia (principal); L65.9 Nonscarring hair loss, unspecified
CPT/HCPCS: 36415; 80048; 82306; 83970; 84439; 84443

== ENCOUNTER → 2023-07-04 11:02 | Outpatient (CLI) | payer MEDICARE, OTHER, SELFPAY ==
[2018-03-22 16:04] VITALS: BMI 30.2
--- NOTE | 2023-07-04 11:04 | DI.RAD.S_ITS ---
Bone Density Report Name: RACHEL GODINEZ Age: 83 Sex: Female Ethnicity: White Date of : 1940 Indication: osteopenia; prior fracture; Referring Provider: TIMA CARRASQUILLO Study: Bone densitometry was performed. Exam Date: July 04, 2023 Accession number: [id number] Bone Density: Region BMD T-score Z-score Classification Femoral Neck (Left) 0.702 -1.3 1.0 Osteopenia Total Hip (Left) 0.859 -0.7 1.4 Normal Femoral Neck (Right) 0.827 -0.2 2.1 Normal Total Hip (Right) 0.924 -0.1 2.0 Normal Total Hip Mean 0.892 -0.4 1.7 Normal Total Forearm (Left) 0.487 -1.7 1.4 Osteopenia 1/3 Forearm (Left) 0.583 -1.8 1.4 Osteopenia UD Forearm (Left) 0.335 -1.9 0.5 Osteopenia World Health Organization criteria for BMD impression classify patients as: Normal (T-score at or above -1.0), Osteopenia (T-score between -1.0 and -2.5), or Osteoporosis (T-score at or below -2.5). 10-year Fracture Risk: FRAX not reported because: Prior hip or vertebral fracture Previous Exams: -- Region Exam Age BMD T-score BMD Change BMD Change Date g/cm2 vs Baseline vs Previous -- Total Hip(Left) 07/04/2023 83 0.859 -0.7 0.008 (1.0%)# 0.092 (11.9%)# 06/22/2021 81 0.768 -1.4 -0.084 (-9.8%)* -0.053 (-6.4%)* 06/10/2019 79 0.821 -1.0 -0.031 (-3.6%)* 0.026 (3.3%) 06/07/2017 77 0.795 -1.2 -0.057 (-6.7%)* -0.021 (-2.6%) 06/01/2015 75 0.816 -1.0 -0.035 (-4.1%)* 0.008 (0.9%) 06/10/2013 73 0.808 -1.1 -0.043 (-5.0%)* 0.016 (2.1%) 05/05/2009 68 0.792 -1.2 -0.059 (-7.0%)* -0.055 (-6.5%)* 08/01/2006 66 0.847 -0.8 -0.004 (-0.5%) -0.004 (-0.5%) 06/29/2004 64 0.851 -0.7 Total Hip(Right) 07/04/2023 83 0.924 -0.1 -0.017 (-1.8%)# 0.040 (4.5%)# 06/22/2021 81 0.884 -0.5 -0.057 (-6.0%)* -0.004 (-0.5%) 06/10/2019 79 0.889 -0.4 -0.053 (-5.6%)* -0.017 (-1.9%) 06/07/2017 77 0.906 -0.3 -0.036 (-3.8%)* 0.026 (2.9%) 06/01/2015 75 0.880 -0.5 -0.061 (-6.5%)* 0.015 (1.7%) 06/10/2013 73 0.865 -0.6 -0.076 (-8.1%)* -0.091 (-9.5%)* 05/05/2009 68 0.956 0.1 0.015 (1.6%) 0.030 (3.2%)* 08/01/2006 66 0.927 -0.1 -0.015 (-1.5%) -0.015 (-1.5%) 06/29/2004 64 0.941 0.0 -- *Denotes significance at 95% confidence level, LSC for Total Hip = 0.027 g/cm2 # Denotes dissimilar scan types or analysis methods Impression: The patient has low bone mass, based on the Left Femoral Neck T-score. The patient has risk factors, including: previous fracture. No significant bone loss was observed. Discussion: INCREASED RISK OF FRACTURE DUE TO HISTORY OF FRACTURE. The patient's previous fracture puts the patient at high risk of a future fracture. In untreated patients, the risk of osteoporotic fracture increases approximately two-fold for each 1.0 SD decrease in T-score. Low bone density is not the only risk factor for fracture; also consider factors such as patient's age, frailty or poor health, risk of falling, risk of injury, previous osteoporotic fracture, family history of osteoporosis, cigarette smoking, low body weight, etc. Not everyone with a low trauma fracture has osteoporosis; osteomalacia and other metabolic bone disorders should also be considered. Patients who have osteoporosis should be evaluated for specific diseases and conditions (secondary causes) that may cause or contribute to bone loss and fracture risk. National Osteoporosis Foundation (NOF) recommends pharmacologic intervention for patients with a prior hip or vertebral fracture regardless of BMD T-score. The patient should follow a healthful lifestyle (good nutrition with adequate calcium and vitamin D, and appropriate weight-bearing exercise). Follow-Up: Consider a repeat BMD and Vertebral Fracture Assessment (VFA) exam in 2 years or sooner if medically necessary, to reassess this patient's status. Reported by: FLY GUAMAN M.D. on 07/04/2023 11:42:00 AM.
== END ==
LOC: RAD 11:03
PROVIDERS: Family Provider Internal Medicine; PCP Internal Medicine; Referring Provider Physician Assistant; Visit Provider Physician Assistant
DX: M81.0 Age-related osteoporosis without current pathological fracture (principal)
CPT/HCPCS: 77080; 77081

== ENCOUNTER → 2023-07-05 10:05 | Outpatient (CLI) | payer MEDICARE, OTHER, SELFPAY ==
[2018-03-22 16:04] VITALS: BMI 30.2
[2023-07-05 10:52] LABS: Alanine Aminotransferase 20 IU/L (<35); Albumin 4.2 g/dL (3.5-5.0); Albumin Globulin Ratio 1.1 (1.0-2.8); Alkaline Phosphatase 108 U/L (38-126); Aspartate Aminotransferase 34 IU/L (14-36); BUN Creatinine Ratio 29.4 (6-22); Bilirubin Total 0.6 mg/dL (0.2-1.3); Blood Urea Nitrogen 25 mg/dL (7-17); Carbon Dioxide 27 mmol/L (22-32); Chloride 100 mmol/L (98-107); Estimated Glomerular Filt Rate > 60 mL/min (>60); Globulin 3.7 g/dL (1.7-4.1); Glucose 103 mg/dL (80-110); HEMOLYSIS < 15 (0-50); Potassium 4.9 mmol/L (3.4-5.1); Sodium 137 mmol/L (137-145); Total Protein 7.9 g/dL (6.3-8.2)
[2023-07-05 11:07] LABS: Vitamin D 25 Hydroxy (D3) 52.8 ng/mL (30.0-100.0)
[2023-07-07 10:47] LABS: Parathyroid Hormone Int 27 pg/mL (15-65)
== END ==
PROVIDERS: Family Provider Internal Medicine; PCP Internal Medicine; Referring Provider Internal Medicine; Visit Provider Internal Medicine
DX: M81.0 Age-related osteoporosis without current pathological fracture (principal); E83.52 Hypercalcemia
CPT/HCPCS: 36415; 80053; 82306; 83970

== ENCOUNTER → 2023-08-30 10:39 | Outpatient (CLI) | payer MEDICARE, OTHER, SELFPAY ==
[2018-03-22 16:04] VITALS: BMI 30.2
[2023-08-30 12:41] LABS: Blood Urea Nitrogen 24 mg/dL (7-17); Calcium 10.9 mg/dL (8.4-10.2); Carbon Dioxide 26 mmol/L (22-32); Chloride 105 mmol/L (98-107); Estimated Glomerular Filt Rate > 60 mL/min (>60); Glucose 89 mg/dL (80-110); HEMOLYSIS < 15 (0-50); Potassium 4.5 mmol/L (3.4-5.1); Sodium 137 mmol/L (137-145)
[2023-08-30 16:50] LABS: Vitamin D 25 Hydroxy (D3) 41.7 ng/mL (30.0-100.0)
[2023-08-31 12:58] LABS: Ionized Calcium 5.5 mg/dL (4.5-5.6)
[2023-09-01 12:21] LABS: M-Spike % Not Observed % (Not Observed); Urine Total Protein <4.0 mg/dL (Not Estab.)
[2023-09-01 14:45] LABS: Calcium 10.8 mg/dL (8.7-10.3); Parathyroid Hormone, Intact 24 pg/mL (15-65)
[2023-09-01 15:08] LABS: Albumin 3.4 g/dL (2.9-4.4); Alpha-1-Globulin 0.3 g/dL (0.0-0.4); Alpha-2-Globulin 0.8 g/dL (0.4-1.0); Globulin Total 3.3 g/dL (2.2-3.9); Protein, Total 6.7 g/dL (6.0-8.5)
[2023-09-07 11:46] LABS: 1,25-Dihydroxy, Vitamin D-2 <10 pg/mL (.)
== END ==
LOC: LAB 10:41
PROVIDERS: Family Provider Internal Medicine; PCP Family Medicine; Referring Provider Internal Medicine Endocrinology, Diabetes & Metabolism; Visit Provider Internal Medicine Endocrinology, Diabetes & Metabolism
DX: E83.52 Hypercalcemia (principal)
CPT/HCPCS: 36415; 80048; 82306; 82310; 82330; 82397; 82652; 83970; 84155; 84156; 84165; 84166

== ENCOUNTER → 2023-10-31 11:10 | Outpatient (CLI) | payer MEDICARE, OTHER, SELFPAY ==
[2018-03-22 16:04] VITALS: BMI 30.2
[2023-10-31 12:11] LABS: Cholesterol 195 mg/dL (140-199); HDL Cholesterol 98 mg/dL (40-60); LDL Cholesterol Calculated 80 mg/dL (<100); Triglycerides 85 mg/dL (35-150)
[2023-10-31 12:16] LABS: High Sensitivity CRP - Cardiac 4.7 mg/L (1.0-3.0)
== END ==
PROVIDERS: Family Provider Internal Medicine; PCP Family Medicine; Referring Provider Family Medicine; Visit Provider Family Medicine
DX: I10 Essential (primary) hypertension (principal); E78.5 Hyperlipidemia, unspecified
CPT/HCPCS: 36415; 80061; 86140

== ENCOUNTER → 2024-07-09 10:03 | Outpatient (CLI) | payer MEDICARE, OTHER, SELFPAY ==
[2018-03-22 16:04] VITALS: BMI 30.2
[2024-07-09 11:04] LABS: BUN Creatinine Ratio 31.3 (6-22); Blood Urea Nitrogen 26 mg/dL (7-17); Calcium 10.5 mg/dL (8.4-10.2); Carbon Dioxide 22 mmol/L (22-32); Chloride 99 mmol/L (98-107); Estimated Glomerular Filt Rate > 60 mL/min (>60); Glucose 85 mg/dL (80-110); HEMOLYSIS 37 (0-50); Potassium 4.8 mmol/L (3.4-5.1); Sodium 131 mmol/L (137-145)
[2024-07-09 11:19] LABS: Vitamin D 25 Hydroxy (D3) 41.1 ng/mL (30.0-100.0)
[2024-07-10 07:09] LABS: Ionized Calcium 5.5 mg/dL (4.5-5.6)
[2024-07-10 19:38] LABS: Calcium 10.1 mg/dL (8.7-10.3); Parathyroid Hormone, Intact 44 pg/mL (15-65)
== END ==
PROVIDERS: Family Provider Family Medicine; PCP Family Medicine; Referring Provider Internal Medicine Endocrinology, Diabetes & Metabolism; Visit Provider Internal Medicine Endocrinology, Diabetes & Metabolism
DX: E83.52 Hypercalcemia (principal)
CPT/HCPCS: 36415; 80048; 82306; 82310; 82330; 83970

== ENCOUNTER → 2024-07-11 13:10 | Outpatient (CLI) | payer MEDICARE, OTHER, SELFPAY ==
[2018-03-22 16:04] VITALS: BMI 30.2
== END ==
PROVIDERS: Family Provider Family Medicine; PCP Family Medicine; Referring Provider Internal Medicine Endocrinology, Diabetes & Metabolism; Visit Provider Internal Medicine Endocrinology, Diabetes & Metabolism
DX: E83.52 Hypercalcemia (principal)
CPT/HCPCS: 82340; 82570

== ENCOUNTER → 2024-07-15 14:27 | Outpatient (CLI) | payer MEDICARE, OTHER, SELFPAY ==
[2018-03-22 16:04] VITALS: BMI 30.2
== END ==
PROVIDERS: Family Provider Internal Medicine; PCP Family Medicine; Referring Provider Family Medicine; Visit Provider Family Medicine
DX: J45.20 Mild intermittent asthma, uncomplicated (principal); R94.2 Abnormal results of pulmonary function studies
CPT/HCPCS: 94060; 94726; 94729

== ENCOUNTER 2024-08-20 11:30 | Outpatient (RCR) | payer MEDICARE, OTHER, SELFPAY ==
[2018-03-22 16:04] VITALS: BMI 30.2
--- NOTE | 2024-07-16 14:35 | PT.OIE ---
Current Diagnoses Unspecified osteoarthritis, unspecified site (07/16/24) Pain in unspecified shoulder (07/16/24) Past Medical History (Last Updated 06/18/24 @ 16:31 by Kayla Warner DO) Abnormal Pap smear of cervix Allergic rhinitis (~1966) Alopecia (~1999) Asthma (~2006) Bruises easily Carpal tunnel syndrome (~2010) Cataracts, bilateral (~2006) Chicken pox (~1962) Colon polyps (~2008) Compression fracture (01/16/20) Depression Eye pressure (~2020) Fibroids (~1996) Fractures GERD (gastroesophageal reflux disease) (~2004) Hand dermatitis Hearing loss (~2007) History of bronchitis History of colon polyps History of compression fracture of spine (~2017) History of pelvic fracture (~2013) Hyperlipidemia Hypertension (~2014) Obesity Osteoarthritis Osteopenia Osteoporosis (~2002) Post-nasal drip (~2013) Psoriasis Rosacea (~2001) Shoulder pain (~2017) Sleep apnea Trochanteric bursitis, right hip (~04/2016) Past Surgical History (Last Updated 02/02/22 @ 21:14 by Bozena Ware MD) Anesthesia H/O bilateral cataract extraction (~2010) History of arthroplasty of left shoulder (03/22/18) History of colonoscopy History of kyphoplasty (~02/13/20) History of rectal surgery Hx of arthroscopy of left knee (~2011) Hx of laparoscopy S/P wisdom tooth extraction Status post blepharoplasty of both eyes Status post meniscectomy (~2010) Visit Care Team Role Provider Type Kayla Warner DO Attending Provider Physician Family Provider Primary Care Provider Referring Provider Specialty: Medical Address: [address] [place] [address], [address] [place] [address], [id number] Email: [email or web address] Physical Therapy Initial Evaluation PT-OP-A Visit Information Start: 07/16/24 13:33 Freq: Status: Active Protocol: Document 07/16/24 13:46 [facility] (Rec: 07/16/24 14:35 [facility] [id number]) Out-Patient Physical Therapy Visit Information Visit Information Visit Type Initial Evaluation Visit Start Time 13:48 Visit Stop Time 14:30 Visit Number 1 Number of SHERIFFS OFFICER Visits 0 PT-OP-B Current Condition Start: 07/16/24 13:33 Freq: Status: Active Protocol: Document 07/16/24 13:46 [facility] (Rec: 07/16/24 14[id number] Current Condition History of Current Condition Current Complaints L shoulder pain w/hx of TSA History of Current Condition Pt has TSA in L shoulder in 2018 and R shoulder has OA. note she doesn't have the flexibility w/moving around. At night she is sidesleeper and it starts bothering her when she lays on it. She pulled out some of her old exercises and doing some stretches and gentle wegith exercises. She is noticing she can do less for ROM and is having to help her the LUE more. The pain when sleeping on it started about 6 months ago. pt fell and had T12 and L1 kyphoplasty. Has osteoporosis. Notes she has lost 3 inches. Her first fx, was L4 after coughing with therapy. 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 Treatment Goals Patient/Caregiver Goals be able to sleep on L side, have more flexibility (get jacket off, be able to put lotion on back, tie an apron, put necklace on, overhead reaching) PT-OP-C Subjective Start: 07/16/24 13:33 Freq: Status: Active Protocol: Document 07/16/24 13:46 [facility] (Rec: 07/16/24 14:35 [id number] Patient Questionnaires Quick Dash- Upper Extremity Quick Dash UE Score 29.5 PT-OP-F Manual Assessment Start: 07/16/24 13:33 Freq: Status: Active Protocol: Document 07/16/24 13:46 [facility] (Rec: 07/16/24 14:35 [id number]) Manual Assessments Soft Tissue Assessment Soft Tissue Mobility Assessment tightness in rhomboids, UT, pecs PT-OP-J Posture/Palpation/Skin Start: 07/16/24 13:33 Freq: Status: Active Protocol: Document 07/16/24 13:46 [facility] (Rec: 07/16/24 14:35 [id number]) Posture Evaluation Comments Posture Comments inc kyphosis, fwd head; L>R scap abd, ant tipped , L trunk rotation PT-OP-K Range of Motion Start: 07/16/24 13:33 Freq: Status: Active Protocol: Document 07/16/24 13:46 [facility] (Rec: 07/16/24 14:35 [facility] [id number]) Shoulder Goniometric Range of Motion Shoulder Right Active Flexion 105 Extension 44 Abduction 77 External Rotation at 0 degrees Abduction 36 Internal Rotation Behind Back (text) L4 Comments goes into scaption w/abd Left Active Flexion 90 Extension 39 Abduction 71 External Rotation at 0 degrees Abduction 49 Internal Rotation Behind Back (text) L3 Comments goes into scaption w/abd PT-OP-M Strength Start: 07/16/24 13:33 Freq: Status: Active Protocol: Document 07/16/24 13:46 [facility] (Rec: 07/16/24 14:35 [id number]) Shoulder Strength Shoulder Manual Muscle Testing Right Flexion 4- Good- Extension 4- Good- Abduction (C5) 3+ Fair+ External Rotation 3+ Fair+ Internal Rotation 3+ Fair+ Left Flexion 3+ Fair+ Extension 4- Good- Abduction (C5) 3+ Fair+ External Rotation 3 Fair Internal Rotation 3 Fair Elbow/Forearm Strength Elbow and Forearm Manual Muscle Testing Right Flexion (C6) 4- Good- Extension (C7) 3+ Fair+ Left Flexion (C6) 4- Good- Extension (C7) 3+ Fair+ PT-OP-Q Treatments Start: 07/16/24 13:33 Freq: Status: Active Protocol: Document 07/16/24 13:46 [facility] (Rec: 07/16/24 14:35 [facility] [id number]) Therapeutic Exercises Standing Exercises flex Standing Exercise Name wall crawl Side bilateral Reps/Minutes 10 x5 sec hold Comments cues slow decent ext Standing Exercise Name doorway stretch- single arm Side bilateral Reps/Minutes 30 sec AAROM Standing Exercise Name 1. ER 2. flex w/opp push up Side bilateral Reps/Minutes 10 ea stretch Standing Exercise Name IR w/towel Side bilateral Reps/Minutes 15 sec Self-Care/Home Management Treatment Education Other Education 8 min:edu re: importance of pain free ROM ; edu re: findings w/weakness and lack of ROM in B shoulders likely part of making difficulty w/ activity PT-OP-T Assessment and Plan Start: 07/16/24 13:33 Freq: Status: Active Protocol: Document 07/16/24 13:46 [facility] (Rec: 07/16/24 14:35 [facility] [id number]) Physical Therapy Assessment Rehab Potential Rehabilitation Potential Good Evaluation Complexity Number of Personal Factors/Comorbidities 3 or More Number of Body Systems Impaired 4 or More Clinical Presentation at Evaluation Evolving Impairments Impairments Activity Tolerance, Coordination,Functional Activities,Functional Mobility ,Pain,Posture,ROM,Soft Tissue Mobility,Strength Goals activities Short Term Goal (STG) Pt will be able to sleep w/o distruption d/t pain when laying on L shoulder STG Duration 08/25 Longterm Goal (LTG) Pt will note greater ease w/ putting on a necklace, lotioning back, doing overhead activtiies, dressing. LTG Duration 09/24 strength Short Term Goal (STG) Pt will be indep w/HEP for flexibility STG Duration 08/25 Longterm Goal (LTG) Pt will score at least 4/5 on BUE MMT to show improved strength in UEs to allow greater ease with aactivities. LTG Duration 09/24 ROM Short Term Goal (STG) Pt will improve IR behind back to at least T7 to allow for greater ease w/behindt he back activities B STG Duration 08/25 Longterm Goal (LTG) Pt will imrpove flex and abd ( in scaption plane) to at least 130 deg B to allow for greater ease w/overhead activity. LTG Duration 09/24 Assessment Summary Assessment Pt presents w/B shoulder pain and lack of flexibility L>R w/ hx of L TSA about 7 years ago but recent inc in pain and progressive loss of ROM. She is motivated ot improve her flexilibility to make daily activities less difficult for her. She has significant B shoulder weakness likely also relating to this dysfunction. She does have hx of compression fx and does have osteoporosis so will be hav to be gentle w/mobilization and progression. She would benefit from skilled PT to improve her function. Physical Therapy Plan Frequency and Duration Frequency of Treatment 1-2x/wk Duration of treatment (weeks) 10 Plan of Care Start Date 07/16/24 Plan of Care End Date 09/24/24 Therapeutic Interventions Therapeutic Interventions Coordination Training,Gait Training,Home Exercise Program ,Joint Mobilizations,Manual Therapy,Neuromuscular Re- education,Orthotic/Prosthetic Management,Patient/Caregiver Education,Self-Care/Home Management,Soft Tissue Mobilization,Taping, Therapeutic Activities, Therapeutic Exercises Modalities Cold Pack/Ice Massage,Electric Stimulation,Hot Packs, Infrared Therapy,Ultrasound Other Therapeutic Interventions gentle mobilizations Next Visit Focus/Plan Next Note Type Treatment Note Next Visit Plan review exercises, arm bike, pulleys, start gentle strengthening manual to improve ROM (very gentle as pt has osteoporosis)
--- NOTE | 2024-07-16 14:35 | PT.OPPOC ---
Physical, Occupational & Speech Therapy At [facility] Current Diagnoses Unspecified osteoarthritis, unspecified site (07/16/24) Pain in unspecified shoulder (07/16/24) Visit Care Team Role Provider Type Kayla Warner DO Attending Provider Physician Family Provider Primary Care Provider Referring Provider Specialty: Medical Address: [address] [place] [address], [address], [place], [address] Email: [email or web address] Plan Of Care PT-OP-B Current Condition Start: 07/16/24 13:33 Freq: Status: Active Protocol: Document 07/16/24 13:46 [facility] (Rec: 07/16/24 14:35 [facility] [id number]) Current Condition History of Current Condition Current Complaints L shoulder pain w/hx of TSA History of Current Condition Pt has TSA in L shoulder in 2018 and R shoulder has OA. note she doesn't have the flexibility w/moving around. At night she is sidesleeper and it starts bothering her when she lays on it. She pulled out some of her old exercises and doing some stretches and gentle wegith exercises. She is noticing she can do less for ROM and is having to help her the LUE more. The pain when sleeping on it started about 6 months ago. pt fell and had T12 and L1 kyphoplasty. Has osteoporosis. Notes she has lost 3 inches. Her first fx, was L4 after coughing with therapy. 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 Treatment Goals Patient/Caregiver Goals be able to sleep on L side, have more flexibility (get jacket off, be able to put lotion on back, tie an apron, put necklace on, overhead reaching) PT-OP-T Assessment and Plan Start: 07/16/24 13:33 Freq: Status: Active Protocol: Document 07/16/24 13:46 [facility] (Rec: 07/16/24 14:35 [facility] [id number]) Physical Therapy Assessment Rehab Potential Rehabilitation Potential Good Evaluation Complexity Number of Personal Factors/Comorbidities 3 or More Number of Body Systems Impaired 4 or More Clinical Presentation at Evaluation Evolving Impairments Impairments Activity Tolerance, Coordination,Functional Activities,Functional Mobility ,Pain,Posture,ROM,Soft Tissue Mobility,Strength Goals activities Short Term Goal (STG) Pt will be able to sleep w/o distruption d/t pain when laying on L shoulder STG Duration 08/25 Insurance Underwriter Goal (LTG) Pt will note greater ease w/ putting on a necklace, lotioning back, doing overhead activtiies, dressing. LTG Duration 09/24 strength Short Term Goal (STG) Pt will be indep w/HEP for flexibility STG Duration 08/25 Insurance Underwriter Goal (LTG) Pt will score at least 4/5 on BUE MMT to show improved strength in UEs to allow greater ease with aactivities. LTG Duration 09/24 ROM Short Term Goal (STG) Pt will improve IR behind back to at least T7 to allow for greater ease w/behindt he back activities B STG Duration 08/25 Insurance Underwriter Goal (LTG) Pt will imrpove flex and abd ( in scaption plane) to at least 130 deg B to allow for greater ease w/overhead activity. LTG Duration 09/24 Assessment Summary Assessment Pt presents w/B shoulder pain and lack of flexibility L>R w/ hx of L TSA about 7 years ago but recent inc in pain and progressive loss of ROM. She is motivated ot improve her flexilibility to make daily activities less difficult for her. She has significant B shoulder weakness likely also relating to this dysfunction. She does have hx of compression fx and does have osteoporosis so will be hav to be gentle w/mobilization and progression. She would benefit from skilled PT to improve her function. Physical Therapy Plan Frequency and Duration Frequency of Treatment 1-2x/wk Duration of treatment (weeks) 10 Plan of Care Start Date 07/16/24 Plan of Care End Date 09/24/24 Therapeutic Interventions Therapeutic Interventions Coordination Training,Gait Training,Home Exercise Program ,Joint Mobilizations,Manual Therapy,Neuromuscular Re- education,Orthotic/Prosthetic Management,Patient/Caregiver Education,Self-Care/Home Management,Soft Tissue Mobilization,Taping, Therapeutic Activities, Therapeutic Exercises Modalities Cold Pack/Ice Massage,Electric Stimulation,Hot Packs, Infrared Therapy,Ultrasound Other Therapeutic Interventions gentle mobilizations Next Visit Focus/Plan Next Note Type Treatment Note Next Visit Plan review exercises, arm bike, pulleys, start gentle strengthening manual to improve ROM (very gentle as pt has osteoporosis) Plan of Care Dates Plan of Care Start Date 07/16/24 Plan of Care End Date 09/24/24 Electronically Signed by: Guerita Castillo, PT 07/16/24 7916 If you are in agreement with this Plan of Care, please return a signed and dated copy. I have reviewed this Plan of Care and certify that the skilled therapy services above are required to meet the patient?s needs. Physician Signature Date Printed Name and Credentials Clinical Instructor Signature Printed Name and Credentials
--- NOTE | 2024-07-18 14:33 | PT.OTN ---
Current Diagnoses Unspecified osteoarthritis, unspecified site (07/18/24) Pain in unspecified shoulder (07/18/24) Physical Therapy Treatment Note PT-OP-A Visit Information Start: 07/16/24 13:33 Freq: Status: Active Protocol: Document 07/18/24 13:51 [facility] (Rec: 07/18/24 14:33 [facility] [id number]) Out-Patient Physical Therapy Visit Information Visit Information Visit Type Progress Note Visit Start Time 13:51 Visit Stop Time 14:30 Visit Number 2 Number of CONTEMPORARY OR MODERN DANCER Visits 0 PT-OP-B Current Condition Start: 07/16/24 13:33 Freq: Status: Active Protocol: Document 07/16/24 13:46 [facility] (Rec[facility] 07/16/24 14[id number] Current Condition History of Current Condition Current Complaints L shoulder pain w/hx of TSA History of Current Condition Pt has TSA in L shoulder in 2018 and R shoulder has OA. note she doesn't have the flexibility w/moving around. At night she is sidesleeper and it starts bothering her when she lays on it. She pulled out some of her old exercises and doing some stretches and gentle wegith exercises. She is noticing she can do less for ROM and is having to help her the LUE more. The pain when sleeping on it started about 6 months ago. pt fell and had T12 and L1 kyphoplasty. Has osteoporosis. Notes she has lost 3 inches. Her first fx, was L4 after coughing with therapy. sees air duct mechanic for parathyroid issue so can't take extra CA. Treatment Goals Patient/Caregiver Goals be able to sleep on L side, have more flexibility (get jacket off, be able to put lotion on back, tie an apron, put necklace on, overhead reaching) PT-OP-C Subjective Start: 07/16/24 13:33 Freq: Status: Active Protocol: Document 07/18/24 13:51 [facility] (Rec: 07/18/24 14:33 [facility] [id number]) OP-PT Subjective Patient Comments Patient Comments compliance w/HEP PT-OP-F Manual Assessment Start: 07/16/24 13:33 Freq: Status: Active Protocol: Document 07/16/24 13:46 [facility] (Rec: 07/16/24 14:35 [facility] [id number]) Manual Assessments Soft Tissue Assessment Soft Tissue Mobility Assessment tightness in rhomboids, UT, pecs PT-OP-J Posture/Palpation/Skin Start: 07/16/24 13:33 Freq: Status: Active Protocol: Document 07/16/24 13:46 [facility] (Rec: 07/16/24 14:35 [facility] [id number]) Posture Evaluation Comments Posture Comments inc kyphosis, fwd head; L>R scap abd, ant tipped , L trunk rotation PT-OP-K Range of Motion Start: 07/16/24 13:33 Freq: Status: Active Protocol: Document 07/16/24 13:46 [facility] (Rec: 07/16/24 14:35 [facility] [id number]) Shoulder Goniometric Range of Motion Shoulder Right Active Flexion 105 Extension 44 Abduction 77 External Rotation at 0 degrees Abduction 36 Internal Rotation Behind Back (text) L4 Comments goes into scaption w/abd Left Active Flexion 90 Extension 39 Abduction 71 External Rotation at 0 degrees Abduction 49 Internal Rotation Behind Back (text) L3 Comments goes into scaption w/abd PT-OP-M Strength Start: 07/16/24 13:33 Freq: Status: Active Protocol: Document 07/16/24 13:46 [facility] (Rec: 07/16/24 14:35 [facility] [id number]) Shoulder Strength Shoulder Manual Muscle Testing Right Flexion 4- Good- Extension 4- Good- Abduction (C5) 3+ Fair+ External Rotation 3+ Fair+ Internal Rotation 3+ Fair+ Left Flexion 3+ Fair+ Extension 4- Good- Abduction (C5) 3+ Fair+ External Rotation 3 Fair Internal Rotation 3 Fair Elbow/Forearm Strength Elbow and Forearm Manual Muscle Testing Right Flexion (C6) 4- Good- Extension (C7) 3+ Fair+ Left Flexion (C6) 4- Good- Extension (C7) 3+ Fair+ PT-OP-Q Treatments Start: 07/16/24 13:33 Freq: Status: Active Protocol: Document 07/18/24 13:51 [facility] (Rec: 07/18/24 14:33 [facility] [id number]) Therapeutic Exercises Sitting Exercises pullys Sitting Exercise Name 1. flex 2. scaption 3. abd 4. IR Side bilateral Reps/Minutes 15 Standing Exercises row Side bilateral Equipment Used augustine band, blue band Reps/Minutes 12 ea Comments cues scap retraction flex Standing Exercise Name wall crawl Side bilateral Reps/Minutes 10 x5 sec hold Comments improved form ext Standing Exercise Name doorway stretch Side bilateral Reps/Minutes 30 sec AAROM Standing Exercise Name 1. ER 2. flex w/opp push up Side bilateral Reps/Minutes 1.10 ea 2. 5sec x12 ea stretch Standing Exercise Name IR w/towel Side bilateral Reps/Minutes 20 sec ea Manual Therapy Treatment Consent Patient gave verbal consent for manual Yes treatment Soft Tissue Mobilization inf Body Location teres/lats Mobilization Type Rolling Intensity/Depth Moderate Body Position Supine Comments w/ flex pec Mobilization Type Rolling Intensity/Depth Moderate Body Position Supine Comments w/flex PT-OP-T Assessment and Plan Start: 07/16/24 13:33 Freq: Status: Active Protocol: Document 07/18/24 13:51 [facility] (Rec: 07/18/24 14:33 [facility] [id number]) Physical Therapy Assessment Goals activities Short Term Goal (STG) Pt will be able to sleep w/o distruption d/t pain when laying on L shoulder STG Duration 08/25 Gas Turbine Mechanic Goal (LTG) Pt will note greater ease w/ putting on a necklace, lotioning back, doing overhead activtiies, dressing. LTG Duration 09/24 strength Short Term Goal (STG) Pt will be indep w/HEP for flexibility STG Duration 08/25 Senior Living Goal (LTG) Pt will score at least 4/5 on BUE MMT to show improved strength in UEs to allow greater ease with aactivities. LTG Duration 09/24 ROM Short Term Goal (STG) Pt will improve IR behind back to at least T7 to allow for greater ease w/behindt he back activities B STG Duration 08/25 Gas Turbine Mechanic Goal (LTG) Pt will imrpove flex and abd ( in scaption plane) to at least 130 deg B to allow for greater ease w/overhead activity. LTG Duration 09/24 Assessment Summary Assessment Pt did well with exercises wth min cues for from. tolerated new exercises and manual w/o inc pain. Flex improved today Physical Therapy Plan Frequency and Duration Frequency of Treatment 1-2x/wk Duration of treatment (weeks) 10 Plan of Care Start Date 07/16/24 Plan of Care End Date 09/24/24 Next Visit Focus/Plan Next Note Type Treatment Note Next Visit Plan review exercises, arm bike, pulleys, start gentle strengthening manual to improve ROM (very gentle as pt has osteoporosis)
--- NOTE | 2024-07-23 12:25 | PT.OTN ---
Current Diagnoses Unspecified osteoarthritis, unspecified site (07/23/24) Pain in unspecified shoulder (07/23/24) Physical Therapy Treatment Note PT-OP-A Visit Information Start: 07/16/24 13:33 Freq: Status: Active Protocol: Document 07/23/24 11:33 [facility] (Rec: 07/23/24 12:25 [facility] [id number]) Out-Patient Physical Therapy Visit Information Visit Information Visit Type Treatment Note Visit Start Time 11:37 Visit Stop Time 12:15 Visit Number 3 Number of TIMEKEEPING SUPERVISOR Visits 0 PT-OP-B Current Condition Start: 07/16/24 13:33 Freq: Status: Active Protocol: Document 07/16/24 13:46 [facility] (Rec: 07/16/24 14:35 [id number] Current Condition History of Current Condition Current Complaints L shoulder pain w/hx of TSA History of Current Condition Pt has TSA in L shoulder in 2018 and R shoulder has OA. note she doesn't have the flexibility w/moving around. At night she is sidesleeper and it starts bothering her when she lays on it. She pulled out some of her old exercises and doing some stretches and gentle wegith exercises. She is noticing she can do less for ROM and is having to help her the LUE more. The pain when sleeping on it started about 6 months ago. pt fell and had T12 and L1 kyphoplasty. Has osteoporosis. Notes she has lost 3 inches. Her first fx, was L4 after coughing with therapy. sees sr. consultant for parathyroid issue so can't take extra CA. Treatment Goals Patient/Caregiver Goals be able to sleep on L side, have more flexibility (get jacket off, be able to put lotion on back, tie an apron, put necklace on, overhead reaching) PT-OP-C Subjective Start: 07/16/24 13:33 Freq: Status: Active Protocol: Document 07/23/24 11:33 [facility] (Rec: 07/23/24 12:25 [facility] [id number]) OP-PT Subjective Patient Comments Patient Comments Pt reports she has been doing her exercises. Patient Reported Progress Improving PT-OP-F Manual Assessment Start: 07/16/24 13:33 Freq: Status: Active Protocol: Document 07/16/24 13:46 [facility] (Rec: 07/16/24 14:35 [id number]) Manual Assessments Soft Tissue Assessment Soft Tissue Mobility Assessment tightness in rhomboids, UT, pecs PT-OP-J Posture/Palpation/Skin Start: 07/16/24 13:33 Freq: Status: Active Protocol: Document 07/16/24 13:46 [facility] (Rec: 07/16/24 14:35 [facility] [id number]) Posture Evaluation Comments Posture Comments inc kyphosis, fwd head; L>R scap abd, ant tipped , L trunk rotation PT-OP-K Range of Motion Start: 07/16/24 13:33 Freq: Status: Active Protocol: Document 07/16/24 13:46 [facility] (Rec: 07/16/24 14:35 [facility] [id number]) Shoulder Goniometric Range of Motion Shoulder Right Active Flexion 105 Extension 44 Abduction 77 External Rotation at 0 degrees Abduction 36 Internal Rotation Behind Back (text) L4 Comments goes into scaption w/abd Left Active Flexion 90 Extension 39 Abduction 71 External Rotation at 0 degrees Abduction 49 Internal Rotation Behind Back (text) L3 Comments goes into scaption w/abd PT-OP-M Strength Start: 07/16/24 13:33 Freq: Status: Active Protocol: Document 07/16/24 13:46 [facility] (Rec: 07/16/24 14:35 [facility] [id number]) Shoulder Strength Shoulder Manual Muscle Testing Right Flexion 4- Good- Extension 4- Good- Abduction (C5) 3+ Fair+ External Rotation 3+ Fair+ Internal Rotation 3+ Fair+ Left Flexion 3+ Fair+ Extension 4- Good- Abduction (C5) 3+ Fair+ External Rotation 3 Fair Internal Rotation 3 Fair Elbow/Forearm Strength Elbow and Forearm Manual Muscle Testing Right Flexion (C6) 4- Good- Extension (C7) 3+ Fair+ Left Flexion (C6) 4- Good- Extension (C7) 3+ Fair+ PT-OP-Q Treatments Start: 07/16/24 13:33 Freq: Status: Active Protocol: Document 07/23/24 11:33 [facility] (Rec: 07/23/24 12:25 [facility] [id number]) Cardio Equipment Upper Body Ergometer (UBE) Duration (Minutes) 4 RPM 60 Seat Position 9 Height 4 Other fwd/back Therapeutic Exercises Sitting Exercises pullys Sitting Exercise Name 1. flex 2. scaption 3. abd 4. IR Side bilateral Reps/Minutes 15 ea Standing Exercises ER Standing Exercise Name single arm at a time Side bilateral Equipment Used L1 Reps/Minutes 10 row Standing Exercise Name straight arm ext Side bilateral Equipment Used sycuan band Reps/Minutes 15 Comments cues scap retraction flex Standing Exercise Name wall crawl Side bilateral Reps/Minutes 5 x5 sec hold Comments improved form ext Standing Exercise Name doorway stretch Side bilateral Reps/Minutes 30 sec AAROM Standing Exercise Name 1. ER 2. flex w/opp push up Side bilateral Reps/Minutes 1.2 2. 6 Comments stop ER at home d/t improved ROM Manual Therapy Treatment Consent Patient gave verbal consent for manual Yes treatment Soft Tissue Mobilization superior Body Location B UT Mobilization Type Rolling inf Body Location teres/lats Mobilization Type Rolling Intensity/Depth Moderate Body Position Supine Comments w/ flex pec Mobilization Type Rolling Intensity/Depth Moderate Body Position Supine Comments w/flex Joint Mobilizations GH Joint B Direction distraction Grade II PT-OP-T Assessment and Plan Start: 07/16/24 13:33 Freq: Status: Active Protocol: Document 07/23/24 11:33 [facility] (Rec: 07/23/24 12:25 [facility] [id number]) Physical Therapy Assessment Goals activities Short Term Goal (STG) Pt will be able to sleep w/o distruption d/t pain when laying on L shoulder STG Duration 08/25 Long-Term Goal (LTG) Pt will note greater ease w/ putting on a necklace, lotioning back, doing overhead activtiies, dressing. LTG Duration 09/24 strength Short Term Goal (STG) Pt will be indep w/HEP for flexibility STG Duration 08/25 Long-Term Goal (LTG) Pt will score at least 4/5 on BUE MMT to show improved strength in UEs to allow greater ease with aactivities. LTG Duration 09/24 ROM Short Term Goal (STG) Pt will improve IR behind back to at least T7 to allow for greater ease w/behindt he back activities B STG Duration 08/25 Long-Term Goal (LTG) Pt will imrpove flex and abd ( in scaption plane) to at least 130 deg B to allow for greater ease w/overhead activity. LTG Duration 09/24 Assessment Summary Assessment pt required less cues today w/ exercises and demo good ER ROM along w/ability to start ER strengthening. Physical Therapy Plan Frequency and Duration Frequency of Treatment 1-2x/wk Duration of treatment (weeks) 10 Plan of Care Start Date 07/16/24 Plan of Care End Date 09/24/24 Next Visit Focus/Plan Next Note Type Treatment Note Next Visit Plan review exercises or advance, arm bike, pulleys, start gentle strengthening manual to improve ROM (very gentle as pt has osteoporosis)
--- NOTE | 2024-07-25 14:34 | PT.OTN ---
Current Diagnoses Unspecified osteoarthritis, unspecified site (07/25/24) Pain in unspecified shoulder (07/25/24) Physical Therapy Treatment Note PT-OP-A Visit Information Start: 07/16/24 13:33 Freq: Status: Active Protocol: Document 07/25/24 13:47 [facility] (Rec: 07/25/24 14:35 [facility] [id number]) Out-Patient Physical Therapy Visit Information Visit Information Visit Type Treatment Note Visit Start Time 13:47 Visit Stop Time 14:34 Visit Number 4 Number of CLOCK AND WATCH HANDS PAINTER Visits 1 Precautions Precautions Hx: R shld OA, L TSA 2018, R hip bursectomy 2016. PT-OP-B Current Condition Start: 07/16/24 13:33 Freq: Status: Active Protocol: Document 07/16/24 13:46 [facility] (Rec: 07/16/24 14:35 [facility] [id number]) Current Condition History of Current Condition Current Complaints L shoulder pain w/hx of TSA History of Current Condition Pt has TSA in L shoulder in 2018 and R shoulder has OA. note she doesn't have the flexibility w/moving around. At night she is sidesleeper and it starts bothering her when she lays on it. She pulled out some of her old exercises and doing some stretches and gentle wegith exercises. She is noticing she can do less for ROM and is having to help her the LUE more. The pain when sleeping on it started about 6 months ago. pt fell and had T12 and L1 kyphoplasty. Has osteoporosis. Notes she has lost 3 inches. Her first fx, was L4 after coughing with therapy. sees agricultural purchasing agent for parathyroid issue so can't take extra CA. Treatment Goals Patient/Caregiver Goals be able to sleep on L side, have more flexibility (get jacket off, be able to put lotion on back, tie an apron, put necklace on, overhead reaching) PT-OP-C Subjective Start: 07/16/24 13:33 Freq: Status: Active Protocol: Document 07/25/24 13:47 [facility] (Rec: 07/25/24 14:35 [facility] [id number]) OP-PT Subjective Patient Comments Patient Comments Pt reported felt pretty good after last tx. PT-OP-F Manual Assessment Start: 07/16/24 13:33 Freq: Status: Active Protocol: Document 07/16/24 13:46 [facility] (Rec: 07/16/24 14:35 [facility] [id number]) Manual Assessments Soft Tissue Assessment Soft Tissue Mobility Assessment tightness in rhomboids, UT, pecs PT-OP-J Posture/Palpation/Skin Start: 07/16/24 13:33 Freq: Status: Active Protocol: Document 07/16/24 13:46 [facility] (Rec: 07/16/24 14:35 [facility] [id number]) Posture Evaluation Comments Posture Comments inc kyphosis, fwd head; L>R scap abd, ant tipped , L trunk rotation PT-OP-K Range of Motion Start: 07/16/24 13:33 Freq: Status: Active Protocol: Document 07/16/24 13:46 [facility] (Rec: 07/16/24 14:35 [facility] [id number]) Shoulder Goniometric Range of Motion Shoulder Right Active Flexion 105 Extension 44 Abduction 77 External Rotation at 0 degrees Abduction 36 Internal Rotation Behind Back (text) L4 Comments goes into scaption w/abd Left Active Flexion 90 Extension 39 Abduction 71 External Rotation at 0 degrees Abduction 49 Internal Rotation Behind Back (text) L3 Comments goes into scaption w/abd PT-OP-M Strength Start: 07/16/24 13:33 Freq: Status: Active Protocol: Document 07/16/24 13:46 [facility] (Rec: 07/16/24 14:35 [facility] [id number]) Shoulder Strength Shoulder Manual Muscle Testing Right Flexion 4- Good- Extension 4- Good- Abduction (C5) 3+ Fair+ External Rotation 3+ Fair+ Internal Rotation 3+ Fair+ Left Flexion 3+ Fair+ Extension 4- Good- Abduction (C5) 3+ Fair+ External Rotation 3 Fair Internal Rotation 3 Fair Elbow/Forearm Strength Elbow and Forearm Manual Muscle Testing Right Flexion (C6) 4- Good- Extension (C7) 3+ Fair+ Left Flexion (C6) 4- Good- Extension (C7) 3+ Fair+ PT-OP-Q Treatments Start: 07/16/24 13:33 Freq: Status: Active Protocol: Document 07/25/24 13:47 [facility] (Rec: 07/25/24 14:35 [facility] [id number]) Cardio Equipment Upper Body Ergometer (UBE) Duration (Minutes) 4 RPM 60 Seat Position 9 Height 4 Other 2 min fwd/ 2 min back Therapeutic Exercises Standing Exercises sink stretch Standing Exercise Name AAROM OH and LB stretch Side bilateral Reps/Minutes 30 sec stretch hold Comments good feedback stretch FF and LB ER Standing Exercise Name single arm at a time Side bilateral Resistance L1 between BUEs, trialed anchored at wall as well good form Equipment Used elbow tucked in side Reps/Minutes 15 each UE Comments cued elbow tucked at side, taller posture /c head up, hand rotation out row Standing Exercise Name straight arm ext Side bilateral Equipment Used nikolski band latex band Reps/Minutes 15 (3x15 HEP) Comments cues scap retraction with elbow straight flex Standing Exercise Name wall slide/ finger walk end range : FF Side bilateral Equipment Used 3 finger width less range L than R Reps/Minutes 10 x5 sec hold Comments improved form, cued walk closer to wall increase range ext Standing Exercise Name doorway pec stretch Side bilateral Resistance BUE same time doorframe Reps/Minutes 30 sec, 1-2 reps Comments good feedback anterior shld and chest stretch AAROM Standing Exercise Name 1. FF 2. ABD Side bilateral Resistance AAROM each Shld Equipment Used dowel w/opp UE support push up Reps/Minutes 4 SH x10 reps each UE Comments front of mirror for self corrections level shld, ed painfree - gd respon. stretch Standing Exercise Name IR w/towel Side bilateral Reps/Minutes 10 sec hold each Comments cued slow breath in/out allow anterior shld stretch PT-OP-T Assessment and Plan Start: 07/16/24 13:33 Freq: Status: Active Protocol: Document 07/25/24 13:47 [facility] (Rec: 07/25/24 14:35 [facility] [id number]) Physical Therapy Assessment Goals activities Short Term Goal (STG) Pt will be able to sleep w/o distruption d/t pain when laying on L shoulder STG Duration 08/25 Absorption Operator Goal (LTG) Pt will note greater ease w/ putting on a necklace, lotioning back, doing overhead activtiies, dressing. LTG Duration 09/24 strength Short Term Goal (STG) Pt will be indep w/HEP for flexibility STG Duration 08/25 Absorption Operator Goal (LTG) Pt will score at least 4/5 on BUE MMT to show improved strength in UEs to allow greater ease with aactivities. LTG Duration 09/24 ROM Short Term Goal (STG) Pt will improve IR behind back to at least T7 to allow for greater ease w/behindt he back activities B STG Duration 08/25 Absorption Operator Goal (LTG) Pt will imrpove flex and abd ( in scaption plane) to at least 130 deg B to allow for greater ease w/overhead activity. LTG Duration 09/24 Assessment Summary Assessment Tx focused on set up and proper form with use mirror during review HEP, cues for proper set up ER elbow tucked into side and direction movement, body closer to wall now for OH wall slide/crawl, added sink stretch for another option FF over head passive stretch with good feedback stretch for arms and back. Physical Therapy Plan Frequency and Duration Frequency of Treatment 1-2x/wk Duration of treatment (weeks) 10 Plan of Care Start Date 07/16/24 Plan of Care End Date 09/24/24 Therapeutic Interventions Therapeutic Interventions Coordination Training,Gait Training,Home Exercise Program ,Joint Mobilizations,Manual Therapy,Neuromuscular Re- education,Orthotic/Prosthetic Management,Patient/Caregiver Education,Self-Care/Home Management,Soft Tissue Mobilization,Taping, Therapeutic Activities, Therapeutic Exercises Modalities Cold Pack/Ice Massage,Electric Stimulation,Hot Packs, Infrared Therapy,Ultrasound Other Therapeutic Interventions gentle mobilizations Next Visit Focus/Plan Next Note Type Treatment Note Next Visit Plan Review exercises, advance if tolerated: arm bike, pulleys, gentle strengthening with TB, manual to improve ROM (very gentle as pt has osteoporosis)
--- NOTE | 2024-07-30 16:01 | PT.OTN ---
Current Diagnoses Unspecified osteoarthritis, unspecified site (07/30/24) Pain in unspecified shoulder (07/30/24) Physical Therapy Treatment Note PT-OP-A Visit Information Start: 07/16/24 13:33 Freq: Status: Active Protocol: Document 07/30/24 15:19 [facility] (Rec: 07/30/24 16:01 [facility] [id number]) Out-Patient Physical Therapy Visit Information Visit Information Visit Type Treatment Note Visit Start Time 15:20 Visit Stop Time 16:00 Visit Number 5 Number of CORE DIPPER Visits 0 PT-OP-B Current Condition Start: 07/16/24 13:33 Freq: Status: Active Protocol: Document 07/16/24 13:46 [facility] (Rec: 07/16/24 14:35 [facility] [id number]) Current Condition History of Current Condition Current Complaints L shoulder pain w/hx of TSA History of Current Condition Pt has TSA in L shoulder in 2018 and R shoulder has OA. note she doesn't have the flexibility w/moving around. At night she is sidesleeper and it starts bothering her when she lays on it. She pulled out some of her old exercises and doing some stretches and gentle wegith exercises. She is noticing she can do less for ROM and is having to help her the LUE more. The pain when sleeping on it started about 6 months ago. pt fell and had T12 and L1 kyphoplasty. Has osteoporosis. Notes she has lost 3 inches. Her first fx, was L4 after coughing with therapy. sees mangle roller for parathyroid issue so can't take extra CA. Treatment Goals Patient/Caregiver Goals be able to sleep on L side, have more flexibility (get jacket off, be able to put lotion on back, tie an apron, put necklace on, overhead reaching) PT-OP-C Subjective Start: 07/16/24 13:33 Freq: Status: Active Protocol: Document 07/30/24 15:19 [facility] (Rec: 07/30/24 16:01 [facility] [id number]) OP-PT Subjective Patient Comments Patient Comments Pt reports she had taken a naproxen a few days ago w/all the packing PT-OP-F Manual Assessment Start: 07/16/24 13:33 Freq: Status: Active Protocol: Document 07/16/24 13:46 [facility] (Rec: 07/16/24 14:35 [facility] [id number]) Manual Assessments Soft Tissue Assessment Soft Tissue Mobility Assessment tightness in rhomboids, UT, pecs PT-OP-J Posture/Palpation/Skin Start: 07/16/24 13:33 Freq: Status: Active Protocol: Document 07/16/24 13:46 [facility] (Rec: 07/16/24 14:35 [facility] [id number]) Posture Evaluation Comments Posture Comments inc kyphosis, fwd head; L>R scap abd, ant tipped , L trunk rotation PT-OP-K Range of Motion Start: 07/16/24 13:33 Freq: Status: Active Protocol: Document 07/16/24 13:46 [facility] (Rec: 07/16/24 14:35 [facility] [id number]) Shoulder Goniometric Range of Motion Shoulder Right Active Flexion 105 Extension 44 Abduction 77 External Rotation at 0 degrees Abduction 36 Internal Rotation Behind Back (text) L4 Comments goes into scaption w/abd Left Active Flexion 90 Extension 39 Abduction 71 External Rotation at 0 degrees Abduction 49 Internal Rotation Behind Back (text) L3 Comments goes into scaption w/abd PT-OP-M Strength Start: 07/16/24 13:33 Freq: Status: Active Protocol: Document 07/16/24 13:46 [facility] (Rec: 07/16/24 14:35 [facility] [id number]) Shoulder Strength Shoulder Manual Muscle Testing Right Flexion 4- Good- Extension 4- Good- Abduction (C5) 3+ Fair+ External Rotation 3+ Fair+ Internal Rotation 3+ Fair+ Left Flexion 3+ Fair+ Extension 4- Good- Abduction (C5) 3+ Fair+ External Rotation 3 Fair Internal Rotation 3 Fair Elbow/Forearm Strength Elbow and Forearm Manual Muscle Testing Right Flexion (C6) 4- Good- Extension (C7) 3+ Fair+ Left Flexion (C6) 4- Good- Extension (C7) 3+ Fair+ PT-OP-Q Treatments Start: 07/16/24 13:33 Freq: Status: Active Protocol: Document 07/30/24 15:19 [facility] (Rec: 07/30/24 16:01 [facility] [id number]) Therapeutic Exercises Supine Exercises flex Supine Exercise Name Habd w/flex Side bilateral Resistance L1 Reps/Minutes 10 Sidelying Exercises ER Side bilateral Equipment Used 1# Reps/Minutes 15 ea abd Side bilateral Resistance 1LB Reps/Minutes 15 ea Sitting Exercises pullys Sitting Exercise Name 1. flex 2. scaption 3. abd 4. IR Side bilateral Reps/Minutes 15 ea Standing Exercises sink stretch Side bilateral Reps/Minutes 30 sec stretch hold ER Standing Exercise Name single arm at a time Side bilateral Resistance L1 Reps/Minutes 15 ea Comments cues to keep anchor arm still, posture, control return to neutral row Standing Exercise Name straight arm ext Side bilateral Equipment Used L3 band Reps/Minutes 15 Comments cues slow eccentric Manual Therapy Treatment Consent Patient gave verbal consent for manual Yes treatment Soft Tissue Mobilization superior Body Location B UT Mobilization Type Rolling pec Body Location B Mobilization Type Rolling Intensity/Depth Moderate Body Position Supine Comments w/flex Joint Mobilizations GH Joint B Direction distraction Grade II PT-OP-T Assessment and Plan Start: 07/16/24 13:33 Freq: Status: Active Protocol: Document 07/30/24 15:19 [facility] (Rec: 07/30/24 16:01 [facility] [id number]) Physical Therapy Assessment Goals activities Short Term Goal (STG) Pt will be able to sleep w/o distruption d/t pain when laying on L shoulder STG Duration 08/25 Skilled Nursing Goal (LTG) Pt will note greater ease w/ putting on a necklace, lotioning back, doing overhead activtiies, dressing. LTG Duration 09/24 strength Short Term Goal (STG) Pt will be indep w/HEP for flexibility STG Duration 08/25 Skilled Nursing Goal (LTG) Pt will score at least 4/5 on BUE MMT to show improved strength in UEs to allow greater ease with aactivities. LTG Duration 09/24 ROM Short Term Goal (STG) Pt will improve IR behind back to at least T7 to allow for greater ease w/behindt he back activities B STG Duration 08/25 Skilled Nursing Goal (LTG) Pt will imrpove flex and abd ( in scaption plane) to at least 130 deg B to allow for greater ease w/overhead activity. LTG Duration 09/24 Assessment Summary Assessment Pt did well with progression of exercises and tolerated advancement of strength today. Did better w/exercises w/min cues mostly for slower eccentric and posture. Physical Therapy Plan Frequency and Duration Frequency of Treatment 1-2x/wk Duration of treatment (weeks) 10 Plan of Care Start Date 07/16/24 Plan of Care End Date 09/24/24 Next Visit Focus/Plan Next Note Type Treatment Note Next Visit Plan advance exercises as tolerated , arm bike, pulleys, gentle strengthening with TB, manual to improve ROM (very gentle as pt has osteoporosis)
--- NOTE | 2024-08-12 13:48 | PT.OTN ---
Current Diagnoses Unspecified osteoarthritis, unspecified site (08/12/24) Pain in unspecified shoulder (08/12/24) Physical Therapy Treatment Note PT-OP-A Visit Information Start: 07/16/24 13:33 Freq: Status: Active Protocol: Document 08/12/24 13:00 [facility] (Rec: 08/12/24 13:50 SP [id number]) Out-Patient Physical Therapy Visit Information Visit Information Visit Type Treatment Note Visit Start Time 13:00 Visit Stop Time 13:48 Visit Number 6 Number of GENERAL LEDGER ACCOUNTANT Visits 1 Precautions Precautions Hx: R shld OA, L TSA 2018, R hip bursectomy 2016. PT-OP-B Current Condition Start: 07/16/24 13:33 Freq: Status: Active Protocol: Document 07/16/24 13:46 [facility] (Rec: 07/16/24 14:35 [facility] [id number]) Current Condition History of Current Condition Current Complaints L shoulder pain w/hx of TSA History of Current Condition Pt has TSA in L shoulder in 2018 and R shoulder has OA. note she doesn't have the flexibility w/moving around. At night she is sidesleeper and it starts bothering her when she lays on it. She pulled out some of her old exercises and doing some stretches and gentle wegith exercises. She is noticing she can do less for ROM and is having to help her the LUE more. The pain when sleeping on it started about 6 months ago. pt fell and had T12 and L1 kyphoplasty. Has osteoporosis. Notes she has lost 3 inches. Her first fx, was L4 after coughing with therapy. sees typewriter mechanic for parathyroid issue so can't take extra CA. Treatment Goals Patient/Caregiver Goals be able to sleep on L side, have more flexibility (get jacket off, be able to put lotion on back, tie an apron, put necklace on, overhead reaching) PT-OP-C Subjective Start: 07/16/24 13:33 Freq: Status: Active Protocol: Document 08/12/24 13:00 [facility] (Rec: 08/12/24 13:50 SP [id number]) OP-PT Subjective Patient Comments Patient Comments Pt reported doing well, compliant with HEP and thinks arms are raising up higher more equal. PT-OP-F Manual Assessment Start: 07/16/24 13:33 Freq: Status: Active Protocol: Document 07/16/24 13:46 [facility] (Rec: 07/16/24 14:35 [facility] [id number]) Manual Assessments Soft Tissue Assessment Soft Tissue Mobility Assessment tightness in rhomboids, UT, pecs PT-OP-J Posture/Palpation/Skin Start: 07/16/24 13:33 Freq: Status: Active Protocol: Document 07/16/24 13:46 [facility] (Rec: 07/16/24 14:35 [facility] [id number]) Posture Evaluation Comments Posture Comments inc kyphosis, fwd head; L>R scap abd, ant tipped , L trunk rotation PT-OP-K Range of Motion Start: 07/16/24 13:33 Freq: Status: Active Protocol: Document 07/16/24 13:46 [facility] (Rec: 07/16/24 14:35 [facility] [id number]) Shoulder Goniometric Range of Motion Shoulder Right Active Flexion 105 Extension 44 Abduction 77 External Rotation at 0 degrees Abduction 36 Internal Rotation Behind Back (text) L4 Comments goes into scaption w/abd Left Active Flexion 90 Extension 39 Abduction 71 External Rotation at 0 degrees Abduction 49 Internal Rotation Behind Back (text) L3 Comments goes into scaption w/abd PT-OP-M Strength Start: 07/16/24 13:33 Freq: Status: Active Protocol: Document 07/16/24 13:46 [facility] (Rec: 07/16/24 14:35 [facility] [id number]) Shoulder Strength Shoulder Manual Muscle Testing Right Flexion 4- Good- Extension 4- Good- Abduction (C5) 3+ Fair+ External Rotation 3+ Fair+ Internal Rotation 3+ Fair+ Left Flexion 3+ Fair+ Extension 4- Good- Abduction (C5) 3+ Fair+ External Rotation 3 Fair Internal Rotation 3 Fair Elbow/Forearm Strength Elbow and Forearm Manual Muscle Testing Right Flexion (C6) 4- Good- Extension (C7) 3+ Fair+ Left Flexion (C6) 4- Good- Extension (C7) 3+ Fair+ PT-OP-Q Treatments Start: 07/16/24 13:33 Freq: Status: Active Protocol: Document 08/12/24 13:00 [facility] (Rec: 08/12/24 13:50 SP [id number]) Cardio Equipment Upper Body Ergometer (UBE) Duration (Minutes) 4 RPM 90 Seat Position 9 Height 4 Other 2 min fwd/ 2 min back- tired but less resistance 08/12 Therapeutic Exercises Supine Exercises flex Supine Exercise Name 1. FF 2. HABD Side bilateral Resistance 1. 4# DB AAROM 2. 1/2 # bar Reps/Minutes 10 each Isaías Comments cued slow painfree range, elbow straight Standing Exercises FF weight Standing Exercise Name R 110 deg L 98 deg Side bilateral Resistance 1/2 lb bar Reps/Minutes 2x10 reps Comments cued tall posture ER Standing Exercise Name single arm at a time Side bilateral Resistance L3 [place] in PT, L1 home still effort tiring Equipment Used anchored to wall in PT Reps/Minutes 15 ea Comments cues to keep anchor arm still, posture, control return to neutral flex Standing Exercise Name 1. wall slide/ finger walk FF 2. Arc LUE: R<>L Side bilateral Equipment Used even height today Reps/Minutes 10 x5 sec hold, 2. 5 reps Comments improved form FF, trialed arc pain mid range abd and add ext Standing Exercise Name straight arm ext Side bilateral Resistance L4 band in PT ([place] latex home) Reps/Minutes 15 x2 sets home Comments cues slow eccentric pause end range engagement stretch Standing Exercise Name 1. Pec stretch 2. IR w/towel Side bilateral Reps/Minutes 1. pec stretch 2. 5 breathes ( 10 sec) hold each Comments cued slow breath in/out allow anterior shld stretch Manual Therapy Treatment Consent Patient gave verbal consent for manual Yes treatment Soft Tissue Mobilization superior Body Location B UT Mobilization Type Rolling Joint Mobilizations GH Joint B Direction distraction Grade II PT-OP-T Assessment and Plan Start: 07/16/24 13:33 Freq: Status: Active Protocol: Document 08/12/24 13:00 SP (Rec: 08/12/24 13:50 SP [id number]) Physical Therapy Assessment Goals activities Short Term Goal (STG) Pt will be able to sleep w/o distruption d/t pain when laying on L shoulder STG Duration 08/25 Moulder Operator Goal (LTG) Pt will note greater ease w/ putting on a necklace, lotioning back, doing overhead activtiies, dressing. LTG Duration 09/24 strength Short Term Goal (STG) Pt will be indep w/HEP for flexibility STG Duration 08/25 [facility] Goal (LTG) Pt will score at least 4/5 on BUE MMT to show improved strength in UEs to allow greater ease with aactivities. LTG Duration 09/24 ROM Short Term Goal (STG) Pt will improve IR behind back to at least T7 to allow for greater ease w/behindt he back activities B STG Duration 08/25 Moulder Operator Goal (LTG) Pt will imrpove flex and abd ( in scaption plane) to at least 130 deg B to allow for greater ease w/overhead activity. LTG Duration 09/24 Assessment Summary Assessment Pt good response to manual. She improve elbow extension correction with cuing during supine therex, improved range FF and HABD under resistance today with no pain. Pt tolerated and able to progress light resistance 1/2 lb bar FF with cuing for elonate posturing. Pt reported just little tired ext tx, no pain. Physical Therapy Plan Frequency and Duration Frequency of Treatment 1-2x/wk Duration of treatment (weeks) 10 Plan of Care Start Date 07/16/24 Plan of Care End Date 09/24/24 Therapeutic Interventions Therapeutic Interventions Coordination Training,Gait Training,Home Exercise Program ,Joint Mobilizations,Manual Therapy,Neuromuscular Re- education,Orthotic/Prosthetic Management,Patient/Caregiver Education,Self-Care/Home Management,Soft Tissue Mobilization,Taping, Therapeutic Activities, Therapeutic Exercises Modalities Cold Pack/Ice Massage,Electric Stimulation,Hot Packs, Infrared Therapy,Ultrasound Other Therapeutic Interventions gentle mobilizations Next Visit Focus/Plan Next Note Type Treatment Note Next Visit Plan Recheck resisted ther ex initiated last tx. Continue arm bike, pulleys, gentle strengthening with TB, manual to improve ROM (very gentle as pt has osteoporosis)
--- NOTE | 2024-08-20 12:34 | PT.OTN ---
Current Diagnoses Unspecified osteoarthritis, unspecified site (08/20/24) Pain in unspecified shoulder (08/20/24) Physical Therapy Treatment Note PT-OP-A Visit Information Start: 07/16/24 13:33 Freq: Status: Active Protocol: Document 08/20/24 11:29 [facility] (Rec: 08/20/24 12:34 [facility] [id number]) Out-Patient Physical Therapy Visit Information Visit Information Visit Type Discharge Summary Visit Start Time 11:36 Visit Stop Time 12:16 Visit Number 7 Number of INDUSTRIAL PHARMACIST Visits 0 PT-OP-B Current Condition Start: 07/16/24 13:33 Freq: Status: Active Protocol: Document 07/16/24 13:46 [facility] (Rec: 07/16/24 14:35 [id number] Current Condition History of Current Condition Current Complaints L shoulder pain w/hx of TSA History of Current Condition Pt has TSA in L shoulder in 2018 and R shoulder has OA. note she doesn't have the flexibility w/moving around. At night she is sidesleeper and it starts bothering her when she lays on it. She pulled out some of her old exercises and doing some stretches and gentle wegith exercises. She is noticing she can do less for ROM and is having to help her the LUE more. The pain when sleeping on it started about 6 months ago. pt fell and had T12 and L1 kyphoplasty. Has osteoporosis. Notes she has lost 3 inches. Her first fx, was L4 after coughing with therapy. sees commuter train operator for parathyroid issue so can't take extra CA. Treatment Goals Patient/Caregiver Goals be able to sleep on L side, have more flexibility (get jacket off, be able to put lotion on back, tie an apron, put necklace on, overhead reaching) PT-OP-C Subjective Start: 07/16/24 13:33 Freq: Status: Active Protocol: Document 08/20/24 11:29 [facility] (Rec: 08/20/24 12:34 [facility] [id number]) OP-PT Subjective Patient Comments Patient Comments Pt feels ready for DC. house sold so moving soon. PT-OP-F Manual Assessment Start: 07/16/24 13:33 Freq: Status: Active Protocol: Document 07/16/24 13:46 [facility] (Rec: 07/16/24 14:35 [id number] Manual Assessments Soft Tissue Assessment Soft Tissue Mobility Assessment tightness in rhomboids, UT, pecs PT-OP-J Posture/Palpation/Skin Start: 07/16/24 13:33 Freq: Status: Active Protocol: Document 07/16/24 13:46 [facility] (Rec: 07/16/24 14:35 [facility] [id number]) Posture Evaluation Comments Posture Comments inc kyphosis, fwd head; L>R scap abd, ant tipped , L trunk rotation PT-OP-K Range of Motion Start: 07/16/24 13:33 Freq: Status: Active Protocol: Document 08/20/24 11:29 [facility] (Rec: 08/20/24 12:34 [facility] [id number]) Shoulder Goniometric Range of Motion Shoulder Right Active Flexion 113 Extension 48 Abduction 93 External Rotation at 0 degrees Abduction 43 Internal Rotation Behind Back (text) T12 Comments can do pure abd now Left Active Flexion 112 Extension 50 Abduction 84 External Rotation at 0 degrees Abduction 53 Internal Rotation Behind Back (text) T11 Comments able ot do pure abd now PT-OP-M Strength Start: 07/16/24 13:33 Freq: Status: Active Protocol: Document 08/20/24 11:29 [facility] (Rec: 08/20/24 12:34 [facility] [id number]) Shoulder Strength Shoulder Manual Muscle Testing Right Flexion 4+ Good+ Extension 4+ Good+ Abduction (C5) 4 Good External Rotation 4 Good Internal Rotation 3+ Fair+ Left Flexion 4 Good Extension 4+ Good+ Abduction (C5) 3+ Fair+ External Rotation 4 Good Internal Rotation 4- Good- PT-OP-Q Treatments Start: 07/16/24 13:33 Freq: Status: Active Protocol: Document 08/20/24 11:29 [facility] (Rec: 08/20/24 12:34 [facility] [id number]) Therapeutic Exercises Sidelying Exercises abd Side bilateral Resistance 1LB, 2lb Reps/Minutes 5, 8 Standing Exercises IR Side bilateral Equipment Used L1 Reps/Minutes 10 sink stretch Side bilateral Reps/Minutes 2x30 sec stretch hold ER Standing Exercise Name double arm Side bilateral Equipment Used L1 Reps/Minutes 15 flex Standing Exercise Name 1. wall slide/ finger walk FF 2. AAROM cane Side bilateral Reps/Minutes 1.5 x5 sec hold, 2. 6 reps ext Standing Exercise Name straight arm ext Side bilateral Resistance L3, L4 Reps/Minutes 15 reps ea Comments cues slow eccentric pause end range engagement stretch Standing Exercise Name 1. Pec stretch 2. IR w/towel Side bilateral Reps/Minutes 1. 30 sec 2. 15 sec ea Comments cued slow breath in/out allow anterior shld stretch Manual Therapy Treatment Consent Patient gave verbal consent for manual Yes treatment Soft Tissue Mobilization inf Body Location teres/lats Mobilization Type Rolling Intensity/Depth Moderate Body Position Supine Comments w/ flex pec Body Location B Mobilization Type Rolling Intensity/Depth Moderate Body Position Supine Comments w/flex Joint Mobilizations GH Joint B Direction distraction Grade II PT-OP-T Assessment and Plan Start: 07/16/24 13:33 Freq: Status: Active Protocol: Document 08/20/24 11:29 [facility] (Rec: 08/20/24 12:34 [facility] [id number]) Physical Therapy Assessment Goals activities Short Term Goal (STG) Pt will be able to sleep w/o distruption d/t pain when laying on L shoulder 08/20- sleeping is getting better STG Duration 08/25 Dividend Deposit Entry Clerk Goal (LTG) Pt will note greater ease w/ putting on a necklace, lotioning back, doing overhead activtiies, dressing. 08/20-can do dressing and overhead is improving, can do a necklace but still difficult , unsure about lotion LTG Duration 09/24 strength Short Term Goal (STG) Pt will be indep w/HEP for flexibility STG Duration achieved 08/20 Dividend Deposit Entry Clerk Goal (LTG) Pt will score at least 4/5 on BUE MMT to show improved strength in UEs to allow greater ease with aactivities. 08/20- mostly met LTG Duration 09/24 ROM Short Term Goal (STG) Pt will improve IR behind back to at least T7 to allow for greater ease w/behindt he back activities B 08/20-improved STG Duration 08/25 Dividend Deposit Entry Clerk Goal (LTG) Pt will imrpove flex and abd ( in scaption plane) to at least 130 deg B to allow for greater ease w/overhead activity. 08/20-improved LTG Duration 09/24 Assessment Summary Assessment Pt doing well with exercises at this time and is indep w/ HEP. She has made excellent progress w/PT w/improved ROM and strength and function. At this time, per pt request, d/t moving at the time, DC pt. Physical Therapy Plan Discharge Physical Therapy Discharge Reasons Patient Request Discharge Comments goals mostly met, pt indep w/ HEP
== END 2024-08-23 12:39 | disposition home or self-care (01) ==
LOC: PHYS 11:30
PROVIDERS: Family Provider Family Medicine; PCP Family Medicine; Referring Provider Family Medicine; Visit Provider Family Medicine
DX: M19.90 Unspecified osteoarthritis, unspecified site (principal); M25.519 Pain in unspecified shoulder
CPT/HCPCS: 97110; 97140; 97162; 97535

== ENCOUNTER → 2024-09-17 09:04 | Outpatient (CLI) | payer MEDICARE, OTHER, SELFPAY ==
[2018-03-22 16:04] VITALS: BMI 30.2
[2024-09-17 10:15] LABS: Add Manual Diff / Slide Review NO; Basophils Absolute Auto 0 /uL (0-100); Basophils Percent Auto 0.3 % (0-2); Eosinophils Absolute Auto 300 /uL (0-450); Eosinophils Percent Auto 3.9 % (2-4); Hematocrit 32.9 % (36-46); Hemoglobin 10.8 g/dL (12.0-16.0); Lymphocytes Absolute Auto 1700 /uL (1100-4500); Lymphocytes Percent Auto 22.6 % (25-40); Mean Corpuscular HGB Conc 32.9 % (30-36); Mean Corpuscular Hemoglobin 28.1 PG (26-34); Mean Corpuscular Volume 85.6 fL (80-100); Monocytes Absolute Auto 800 /uL (0-900); Monocytes Percent Auto 10.4 % (3-14); Neutrophils Absolute Auto 4700 /uL (1500-7000); Neutrophils Percent Auto 62.8 % (50-75); Platelet Count 399 X10^3/uL (150-400); Red Blood Cell Count 3.85 X10^6/uL (4.0-5.2); Red Cell Distribution Width 13.7 % (11.6-14.8); White Blood Cell Count 7.4 X10^3/uL (4.5-11.0)
[2024-09-17 10:25] LABS: Alanine Aminotransferase 27 IU/L (<35); Albumin 3.8 g/dL (3.5-5.0); Albumin Globulin Ratio 1.3 (1.0-2.8); Alkaline Phosphatase 150 U/L (38-126); Aspartate Aminotransferase 44 IU/L (14-36); BUN Creatinine Ratio 27.1 (6-22); Bilirubin Total 0.4 mg/dL (0.2-1.3); Blood Urea Nitrogen 23 mg/dL (7-17); Calcium 10.6 mg/dL (8.4-10.2); Carbon Dioxide 27 mmol/L (22-32); Chloride 101 mmol/L (98-107); Cholesterol 170 mg/dL (140-199); Estimated Glomerular Filt Rate > 60 mL/min (>60); Globulin 2.9 g/dL (1.7-4.1); Glucose 93 mg/dL (70-99); HDL Cholesterol 80 mg/dL (40-60); HEMOLYSIS < 15 (0-50); LDL Cholesterol Calculated 79 mg/dL (<100); Potassium 4.6 mmol/L (3.4-5.1); Sodium 135 mmol/L (137-145); Total Protein 6.7 g/dL (6.3-8.2); Triglycerides 56 mg/dL (35-150)
[2024-09-18 04:36] LABS: CRP, High Sensitivity 11.93 mg/L (0.00-3.00)
== END ==
PROVIDERS: Family Provider Family Medicine; PCP Family Medicine; Referring Provider Family Medicine; Visit Provider Family Medicine
DX: E83.52 Hypercalcemia (principal); E78.5 Hyperlipidemia, unspecified; I10 Essential (primary) hypertension
CPT/HCPCS: 36415; 80053; 80061; 85025; 86140

== ENCOUNTER → 2025-01-30 10:18 | Outpatient (CLI) | payer MEDICARE, OTHER, SELFPAY ==
[2018-03-22 16:04] VITALS: BMI 30.2
[2025-01-30 11:49] LABS: Albumin 4.0 g/dL (3.5-5.0); Blood Urea Nitrogen 23 mg/dL (7-17); Calcium 10.9 mg/dL (8.4-10.2); Carbon Dioxide 27 mmol/L (22-32); Chloride 100 mmol/L (98-107); Estimated Glomerular Filt Rate 56 mL/min (>60); Glucose 83 mg/dL (70-99); HEMOLYSIS < 15 (0-50); Phosphorous 4.5 mg/dL (2.8-4.1); Potassium 4.8 mmol/L (3.4-5.1); Sodium 136 mmol/L (137-145)
[2025-01-30 12:04] LABS: Vitamin D 25 Hydroxy (D3) 42.8 ng/mL (30.0-100.0)
[2025-02-01 08:11] LABS: Calcium 10.6 mg/dL (8.7-10.3); Parathyroid Hormone, Intact 32 pg/mL (15-65)
== END ==
PROVIDERS: PCP Family Medicine; Referring Provider Family Medicine; Visit Provider Internal Medicine Endocrinology, Diabetes & Metabolism
DX: E83.52 Hypercalcemia (principal); M81.0 Age-related osteoporosis without current pathological fracture
CPT/HCPCS: 36415; 80069; 82306; 82310; 82330; 83970